=== PATIENT | male | born 1980 | race Caucasian/White ===

== ENCOUNTER 2017-08-18 00:40 | Inpatient (IN) | payer MEDICAID, OTHER ==
--- NOTE | 2017-08-18 01:39 | C.PDOC ---
History Of Present Illness Patient presents to the ER requesting detox from heroin and cocaine, last use was earlier today. Patient is also here for wound check of an abscess to the left antecubital area that has been drained. Denies fever or chills. Time Seen by Provider: 08/18/17 01:24 Chief Complaint (Nursing): Abnormal Skin Integrity History Per: Patient History/Exam Limitations: no limitations Onset/Duration Of Symptoms: Days Current Symptoms Are (Timing): Still Present Suicide/Self Injury Attempted (Context): None Modifying Factor(s): Cocaine, Other (Heroin) Severity: None Pain Scale Rating Of: 0 Associated Symptoms: denies: Depression, Suicidal Thoughts Involuntary Hold By: None Recent travel outside of the [place]: No Past Medical History Reviewed: Historical Data, Nursing Documentation, Vital Signs Vital Signs: Last Vital Signs Temp 98.2 F 08/18/17 05:48 Pulse 68 08/18/17 05:48 Resp 22 08/18/17 05:48 BP 120/60 08/18/17 05:48 Pulse Ox 97 08/18/17 05:48 - Medical History PMH: Anxiety, Depression - [facility] Procedures DETOXIFICATION SERVICES FOR SUBSTANCE ABUSE TREATMENT (06/26/15) GROUP PSYCHOTHERAPY (06/26/15) INDIVIDUAL PSYCHOTHERAPY, SUPPORTIVE (06/26/15) MEDS MGMT FOR SUBSTANCE ABUSE TREATMENT, METHADONE MAINT (06/26/15) Family History: States: No Known Family Hx - Social History Hx Alcohol Use: No Hx Substance Use: Yes - Immunization History Hx Tetanus Toxoid Vaccination: No Hx Influenza Vaccination: No Hx Pneumococcal Vaccination: No Review Of Systems Constitutional: Negative for: Fever, Chills Cardiovascular: Negative for: Chest Pain, Palpitations Respiratory: Negative for: Cough, Shortness of Breath Gastrointestinal: Negative for: Nausea, Vomiting Skin: Positive for: Other (Healed wound) Physical Exam - Physical Exam Appears: Non-toxic Skin: Warm, Dry Head: Normacephalic Oral Mucosa: Moist Chest: Symmetrical, No Tenderness Cardiovascular: Rhythm Regular Respiratory: No Rales, No Rhonchi, No Wheezing Gastrointestinal/Abdominal: Soft, No Tenderness Extremity: Capillary Refill (<2 seconds), Other (Healed wound to left antecubital area. No erythema, fluctuance, or streaking) Pulses: Left Radial: Normal, Right Radial: Normal Neurological/Psych: Oriented x3 ED Course And Treatment - Laboratory Results Result Diagrams: 08/18/17 02:32 08/18/17 02:32 O2 Sat by Pulse Oximetry: 98 (room air) Pulse Ox Interpretation: Normal Progress Note: Blood work and urinalysis ordered. Crisis notified. Disposition Discussed With DrNany: Diana Myers Comment: accepted the pt onher service and took over the care at 5AM Doctor Will See Patient In The: Hospital Counseled Patient/Family Regarding: Studies Performed, Diagnosis - Disposition Disposition: HOSPITALIZED Disposition Time: 01:39 Condition: FAIR - Clinical Impression Clinical Impression: Depressive disorder - Scribe Statement The provider has reviewed the documentation as recorded by the Scribe Waqas Mcallister All medical record entries made by the Scribe were at my direction and personally dictated by me. I have reviewed the chart and agree that the record accurately reflects my personal performance of the history, physical exam, medical decision making, and the department course for this patient. I have also personally directed, reviewed, and agree with the discharge instructions and disposition. Decision To Admit - Pt Status Changed To: Hospital Disposition Of: Inpatient - Admit Certification Admit to Inpatient:: After my assessment, the patient will require hospitalization for at least two midnights. This is because of the severity of symptoms shown, intensity of services needed, and/or the medical risk in this patient being treated as an outpatient. - InPatient: Physician Admission Certification: I certify that this patient requires 2 or more midnights of care for the following reason:: After my assessment, the patient will require hospitalization for at least two midnights. This is because of the severity of symptoms shown, intensity of services needed, and/or the medical risk in this patient being treated as an outpatient. - . Bed Request Type: Psychiatry Admitting Physician: Diana Myers Patient Diagnosis: Depressive disorder
[2017-08-18] MEDS ORDERED: Piperacillin/Tazobact 3.375 GM in Sodium Chloride 100 ML IVPB STA (02:07)
[2017-08-18] MEDS ORDERED: Vancomycin 1 GM 1 GM/250 ML BAG IVPB SCH (02:15)
[2017-08-18] MEDS ORDERED: Vancomycin 1 GM 1 GM/250 ML BAG IVPB STA (02:36)
[2017-08-18 02:37] LABS: BASO % 0.4 % (0.0-2.0); EOS # 0.3 K/uL (0.0-0.7); EOS % 4.8 % (0.0-4.0); HEMOGLOBIN 13.7 g/dL (12.0-18.0); LYMPH # 2.1 K/uL (1.0-4.3); LYMPH % 32.9 % (20.0-40.0); MEAN CELL VOLUME 88.5 fL (80.0-94.0); MEAN PLATELET VOLUME 7.2 fL (7.2-11.7); MONO # 0.5 K/uL (0.0-0.8); MONO % 8.6 % (0.0-10.0); NEUT # 3.4 K/uL (1.8-7.0); NEUT % 53.3 % (50.0-75.0); NRBC % 0.1 % (0.0-2.0); RBC 4.41 Mil/uL (4.40-5.90); RED CELL DISTRIBUTION WIDTH 12.6 % (11.5-14.5); WHITE BLOOD COUNT 6.4 K/uL (4.8-10.8)
[2017-08-18 02:49] LABS: ALBUMIN 3.7 g/dL (3.5-5.0); ALT/SGPT 121 U/L (21-72); AST/SGOT 88 U/L (17-59); BLOOD UREA NITROGEN 18 mg/dL (9-20); CALCIUM 8.9 mg/dl (8.6-10.4); GFR AFRICAN-AMERICAN > 60; GFR NON-AFRICAN AMERICAN > 60
[2017-08-18 03:01] LABS: SQUAMOUS EPITHIAL < 1 /hpf (0-5); URINE BILIRUBIN NEGATIVE (NEGATIVE); URINE BLOOD NEGATIVE (NEGATIVE); URINE CLARITY Clear (Clear); URINE COLOR Amber (YELLOW); URINE GLUCOSE (UA) NORMAL (Normal); URINE LEUKOCYTE ESTERASE NEG Leu/uL (Negative); URINE PROTEIN NEGATIVE (NEGATIVE)
[2017-08-18 03:14] LABS: BARBITURATES, UR NEGATIVE (NEGATIVE); BENZODIAZEPINES, UR NEGATIVE (NEGATIVE); PHENCYCLIDINE, UR NEGATIVE (NEGATIVE)
[2017-08-18 03:20] LABS: OPIATES, UR POSITIVE (NEGATIVE)
[2017-08-18 06:13] VITALS: O2SAT 98
--- NOTE | 2017-08-18 06:37 | PCM.BM ---
<Bob Cadet - Last Filed: 08/18/17 06:36> Treatment Plan Problems - Problems identified on initial assessmt Depression Date Initiated: 08/18/17 Time Initiated: 05:50 Assessment reference: NA Status: Active Suicidal Ideation Date Initiated: 08/18/17 Time Initiated: 05:50 Assessment reference: NA Status: Monitor Treatment assets and liabiliti Patient Assests: ADL independent, good support system, negotiates basic needs Patient Liabilities: substance abuse (Cocaine, Heroin) - Milieu Protocol Maintain good personal hygiene: daily Encourage regular showers, daily Remind patient to perform daily oral care, every shift Assist patient to perform ADL's Conduct patient checks and document Observation sheet: Q15 minutes Maintain personal safety: every shift Educate patient to report safety concerns to staff, every shift Monitor environment for contraband/sharps Medication safety: Monitor for expected outcome, potential side effects: every shift, Assess barriers to learning: every shift, Assess readiness for medication education: every shift <Ignacia Winters - Last Filed: 08/19/17 11:38> Family Contact Family involvement: Family/SO is involved Family contact: Patient declines to allow family contact at present - Goals for Treatment Patient goals for treatment: "I want to go to rehab." Discharge/Continuing Care - Education Needs Education Needs: Patient Medication, Patient Coping Skills, Patient Placement options, Patient Community resources - Discharge Discharge Criteria: Tolerates medication w/o severe side effects, Free of Suicidal thoughts, No longer exhibiting s/s of withdrawal, Reduction of target symptoms Discharge to:: Substance Abuse Rehab - Treatment Team Participation Discussed with Family/SO: No Was Patient/Family/SO present at Treatment Team Meeting: Yes <Johnny Zayas - Last Filed: 08/20/17 19:13> - Diagnosis (1) Depressive disorder Status: Acute Interventions: 08/20/17 19:12 * Assess/adjust medications daily and /or as needed * See patient on an individual basis 7x/week to assess symptoms of depression * Monitor for side effects & effectiveness of medications * (2) Heroin abuse Status: Acute Interventions: 08/20/17 19:13 * Assess 7x/week regarding severity of withdrawal * Educate regarding risks, benefits, side effects and alternatives of medications * Use Motivational Interviewing for abstinence * Use CBT for relapse prevention * Medication management for withdrawal symptoms * Encourage medication assisted treatment *
[2017-08-18 07:06] VITALS: RESP 20
--- NOTE | 2017-08-18 10:14 | PCM.PSYCH ---
Initial Psychiatric Evaluation - Initial Psychiatric Evaluation Type of Admission: Voluntary Legal Status: Capacity Chief Complaint (in patient's own words): I was feeling depressed and suicidal.' History of Present Illness and Precipitating Events: Pt is 37yr old CM, who is currently unemployed with history of depressive disorder, opiate use disorder and cocaine use disorder came to the hospital requesting detox. When he was told that no detox beds were available he said that he is suicidal with a plan to overdose on drugs. Patient has h/o depressive disorder. He was discharged from [facility] almost 2 years ago, from . As per the patient he relapsed on heroin and stopped taking his medications. Pt said that he texted his mother and told her, that he if don't get admitted he is going to kill himself. Pt said that him and his are homeless. His went to another hospital. He said that he is afraid to go back to the street because someone is looking for him and his concerning some money that is owed. He reports injecting 10 bags of heroin daily along with 4 bags of cocaine. Reports withdrawal symptoms including nausea , headaches and sweating, back pains, and joint pain. he reports depressed mood , feelings of helplessness, hopelessness and worthlessness. He reports poor sleep and poor appetite. He denies any auditory or visual hallucinations or any paranoia. PMH None reported Current Medications: Active Medications Generic Name Dose Route Start Last Admin Trade Name Freq PRN Reason Stop Dose Admin Clonidine HCl 0.1 mg 08/18/17 05:05 Catapres PO Q8 PRN COWS Score More or Equal to 5 Hydroxyzine HCl 25 mg 08/18/17 05:06 Atarax PO Q6 PRN Anxiety Ibuprofen 600 mg 08/18/17 05:06 Motrin Tab PO Q6 PRN Pain, moderate (4-7) Loperamide HCl 2 mg 08/18/17 05:05 Imodium PO Q8 PRN Diarrhea Ondansetron HCl 4 mg 08/18/17 05:05 Zofran Tab PO Q8 PRN Nausea/Vomiting Past Psychiatric History - Past Psychiatric History Previous Treatment History: Inpatient Pertinent Medical Hx (Current Medical&Sleep Prob, Allergies): Allergies Allergy/AdvReac Type Severity Reaction Status Date / Time banana Allergy SWELLING Verified 08/18/17 00:56 No Known Home Med 08/18/17 Review of Systems - Review of Systems All systems: reviewed and no additional remarkable complaints except - Psychiatric Psychiatric: Anxiety, Irritability, Suicidal Ideation Mental Status Examination - Personal Presentation Personal Presentation: Looks stated age - Affect Affect: Constricted, Depressed - Motor Activity Motor Activity: Calm - Reliability in Providing Information Reliability in Providing Information: Good - Speech Speech: Organized - Mood Mood: Depressed, Anxious - Formal Thought Process Formal Thought Process: No Impairment - Obsessions/Compulsions Obsessions: No Compulsions: No - Cognitive Functions Orientation: Person, Place, Situation, Time Sensorium: Alert Attention/Concentration: Attentive Abstract Thinking: [place] Estimate of Intelligence: Below average Judgement: Imparied, as evidence by: Poor judgement, Imparied, as evidence by: Lack of insight into illness - Risk Risk: Suicidal, Withdrawal, Diminished functioning - Strength & Assets Inventory Strength & Assets Inventory: Family support DSM 5 DX - DSM 5 DSM 5 Diagnosis: Major depressive disorder recurrent moderate Opioid use disorder severe Opioid withdrawal Cocaine use disorder severe - Recommended/Plan of Treatment Treatment Recommendations and Plan of Treatment: Major depressive disorder recurrent moderate -CBT -Psychoeducation -Supportive therapy, group therapy, individual therapy -Trazodone 100 mg by mouth daily at bedtime -Hydroxyzine 25 mg by mouth every 6 hours when necessary -Gabapentin 100 mg po TID -Celexa 20 mg daily Opioid use disorder severe -CBT -Psychoeducation -Supportive therapy, individual therapy -Use PA for abstinence Opioid withdrawal -CBT -Psychoeducation -Supportive therapy, individual therapy -Clonidine when necessary -Methadone taper Cocaine use disorder severe -Monitor signs and symptoms -Use PA for abstinence - Smoking Cessation Smoking Cessation Initiated: No
--- NOTE | 2017-08-20 19:23 | PCM.PYCHPN ---
Psychiatric Progress Note - Psychiatric Progress Note Patient seen today, length of contact: 16 min Patient Chief Complaint: "I am depressed" Problems Identified/Issues Discussed: The pt is seen, chart reviewed, case discussed with staff. Support given, CBT and NE used briefly No new symptoms reported, improving slowly and needs more time No SEs from medications, risks discussed. After care discussed Medication Change: Yes Medical Record Reviewed: Yes Mental Status Examination - Cognitive Function Orientation: Person, Place, Situation, Time Memory: Intact Attention: WNL Concentration: WNL Association: WNL Fund of Knowledge: WNL - Mood Mood: Depressed, Anxious - Affect Affect: Constricted, Depressed - Speech Speech: Appropriate - Formal Thought Process Formal Thought Process: No Impairment - Suicidal Ideation Suicidal Ideation: No - Homicidal Ideation Homicidal Ideation: No Goal/Treatment Plan - Goal/Treatment Plan Need for Continued Stay: Discharge may exacerbated symptoms, Severe functional impairment Progress Toward Problem(s) and Goals/Treatment Plan: Continue medications Support and psychoeducation daily Attend groups and activities daily After care planning by RK
--- NOTE | 2017-08-20 19:32 | PCM.PYCHPN ---
Psychiatric Progress Note - Psychiatric Progress Note Patient seen today, length of contact: 16 min Patient Chief Complaint: "I am not well" Problems Identified/Issues Discussed: The pt is seen, chart reviewed, case discussed with staff. The pt is compliant with medications and reports no side-effects. Symptoms are improving but needs more time to stabilize. After care discussed, support and psychoeducation given. Medication Change: Yes (detox changes daily) Medical Record Reviewed: Yes Mental Status Examination - Cognitive Function Orientation: Person, Place, Situation, Time Memory: Intact Attention: WNL Concentration: WNL Association: WNL Fund of Knowledge: WNL - Mood Mood: Depressed, Anxious - Affect Affect: Constricted - Speech Speech: Appropriate - Formal Thought Process Formal Thought Process: No Impairment - Suicidal Ideation Suicidal Ideation: No - Homicidal Ideation Homicidal Ideation: No Goal/Treatment Plan - Goal/Treatment Plan Need for Continued Stay: Discharge may exacerbated symptoms, Severe functional impairment Progress Toward Problem(s) and Goals/Treatment Plan: Continue medications Support and psychoeducation daily Attend groups and activities daily After care planning by RK Estimated Date of D/C: 08/22/17
[2017-08-21 06:30] VITALS: TEMP 98.7
--- NOTE | 2017-08-21 09:22 | PCM.PYCHDC ---
Mental Status Examination - Mental Status Examination Orientation: Person Discharge Summary - Discharge Note Consultations:: List each consultation separately and include: 1. Reason for request. 2. Findings. 3. Follow-up Summary of Hospital Course include:: 1. Description of specific treatment plan utilized for patients during their course of treatmen. 2. Summarize the time- course for resolution of acute symptoms and/or regressed behaviors. 3. Describe issues identified and worked on during hospitalization. 4. Describe medication utilized. 5. Describe medical problems identified and treated. 6. Reassessment of suicide risk Summary of Hospital Course: He claims he will go to [facility] [place] tomorrow. He put in a 48-hr note and left a day or two early, but he had improved and competed methadone detox. - Diagnosis (1) Depressive disorder Current Visit: Yes Status: Acute (2) Heroin abuse Current Visit: No Status: Acute - Final Diagnosis (DSM 5) Condition upon Discharge: FAIR Disposition: HOME/ ROUTINE Follow-up Treatment Plan: Continue medications Support and psychoeducation daily Attend groups and activities daily After care planning by RK Prescriptions/Medication Reconciliation: Citalopram [celEXA] 20 mg PO DAILY #30 tab traZODone [Desyrel] 50 mg PO HS PRN #30 tab PRN Reason: Insomnia
[2017-08-21 09:31] VITALS: BP 116/71; PULSE 58
== END 2017-08-21 10:55 | disposition home or self-care (01) | DRG 744 ==
LOC: C.ER 00:40 → C.5E 04:58
PROVIDERS: ADMIT Psychiatry & Neurology Psychiatry; ATTEND Psychiatry & Neurology Psychiatry
PROC: HZ52ZZZ Individual Psychotherapy for Substance Abuse Treatment, Cognitive-Behavioral (ICD-10-PCS; principal; 2017-08-18)
PROC: HZ59ZZZ Individual Psychotherapy for Substance Abuse Treatment, Supportive (ICD-10-PCS; 2017-08-18)
PROC: HZ56ZZZ Individual Psychotherapy for Substance Abuse Treatment, Psychoeducation (ICD-10-PCS; 2017-08-18)
PROC: HZ2ZZZZ Detoxification Services for Substance Abuse Treatment (ICD-10-PCS; 2017-08-18)
PROC: GZHZZZZ Group Psychotherapy (ICD-10-PCS; 2017-08-18)
PROC: GZ58ZZZ Individual Psychotherapy, Cognitive-Behavioral (ICD-10-PCS; 2017-08-18)
PROC: GZ56ZZZ Individual Psychotherapy, Supportive (ICD-10-PCS; 2017-08-18)
DX: F11.23 Opioid dependence with withdrawal (principal); F33.1 Major depressive disorder, recurrent, moderate; F14.20 Cocaine dependence, uncomplicated; F41.9 Anxiety disorder, unspecified

== ENCOUNTER 2017-11-01 13:24 | Inpatient (IN) | payer MEDICAID, OTHER ==
[2017-11-01 14:14] LABS: SQUAMOUS EPITHIAL < 1 /hpf (0-5); URINE BACTERIA RARE (<OCC); URINE BILIRUBIN NEGATIVE (NEGATIVE); URINE BLOOD NEGATIVE (NEGATIVE); URINE CLARITY Hazy (Clear); URINE COLOR Amber (YELLOW); URINE GLUCOSE (UA) NORMAL (Normal); URINE LEUKOCYTE ESTERASE NEG Leu/uL (Negative); URINE PROTEIN NEGATIVE (NEGATIVE)
[2017-11-01 14:33] LABS: BASO % 0.6 % (0.0-2.0); EOS # 0.3 K/uL (0.0-0.7); EOS % 3.3 % (0.0-4.0); HEMOGLOBIN 14.3 g/dL (12.0-18.0); LYMPH # 1.3 K/uL (1.0-4.3); LYMPH % 16.8 % (20.0-40.0); MEAN CELL VOLUME 90.9 fL (80.0-94.0); MEAN CORPUSCULAR HEMOGLOBIN 32.3 pg (27.0-31.0); MEAN CORPUSCULAR HGB CONC 35.6 g/dL (33.0-37.0); MEAN PLATELET VOLUME 6.7 fL (7.2-11.7); MONO # 0.6 K/uL (0.0-0.8); MONO % 8.6 % (0.0-10.0); NEUT # 5.3 K/uL (1.8-7.0); NEUT % 70.7 % (50.0-75.0); NRBC % 0.1 % (0.0-2.0); RBC 4.41 Mil/uL (4.40-5.90); RED CELL DISTRIBUTION WIDTH 14.4 % (11.5-14.5); WHITE BLOOD COUNT 7.5 K/uL (4.8-10.8)
[2017-11-01 14:33] LABS: BARBITURATES, UR NEGATIVE (NEGATIVE); BENZODIAZEPINES, UR NEGATIVE (NEGATIVE); PHENCYCLIDINE, UR NEGATIVE (NEGATIVE)
[2017-11-01 15:09] LABS: ALB/GLOB RATIO 1.1 (1.0-2.1); ALBUMIN 4.2 g/dL (3.5-5.0); ALT/SGPT 83 U/L (21-72); AST/SGOT 59 U/L (17-59); BLOOD UREA NITROGEN 19 mg/dL (9-20); CALCIUM 9.1 mg/dl (8.6-10.4); GFR NON-AFRICAN AMERICAN > 60
[2017-11-01 15:33] LABS: OPIATES, UR POSITIVE (NEGATIVE)
--- NOTE | 2017-11-01 16:11 | C.PDOC ---
History Of Present Illness 37 year old male presents to the emergency department stating that he wishes to harm himself. He admits to using heroin and cocaine. He denies other symptoms at this time. Patient states that his plan was to overdose. Time Seen by Provider: 11/01/17 13:32 Chief Complaint (Nursing): Psychiatric Evaluation History Per: Patient History/Exam Limitations: no limitations Onset/Duration Of Symptoms: Hrs Current Symptoms Are (Timing): Still Present Suicide/Self Injury Attempted (Context): None Modifying Factor(s): Cocaine, Other (heroin) Associated Symptoms: Depression, Suicidal Thoughts, Suicidal Plan Past Medical History Reviewed: Historical Data, Nursing Documentation, Vital Signs Vital Signs: Last Vital Signs Temp 98.0 F 11/01/17 13:55 Pulse 71 11/01/17 13:55 Resp 20 11/01/17 13:55 BP 154/88 H 11/01/17 13:55 Pulse Ox 96 11/01/17 16:15 - Medical History PMH: Anxiety, Depression, Hepatitis (Hep "C") Denies: Diabetes, Emphysema, HIV (HIV negative), HTN, Chronic Kidney Disease , Seizures, Sexually Transmitted Disease Surgical History: No Surg Hx - [facility] Procedures DETOXIFICATION SERVICES FOR SUBSTANCE ABUSE TREATMENT (08/18/17) GROUP PSYCHOTHERAPY (08/18/17) INDIV PSYCHOTHERAPY FOR SUBSTANCE ABUSE TREATMENT, SUPPORT (08/18/17) INDIV PSYCHOTHERAPY FOR SUBSTANCE ABUSE, COGNITIV BEHAVIORAL (08/18/17) INDIV PSYCHOTHERAPY FOR SUBSTANCE ABUSE, PSYCHOEDUCATION (08/18/17) INDIVIDUAL PSYCHOTHERAPY, COGNITIVE-BEHAVIORAL (08/18/17) INDIVIDUAL PSYCHOTHERAPY, SUPPORTIVE (08/18/17) MEDS MGMT FOR SUBSTANCE ABUSE TREATMENT, METHADONE MAINT (06/26/15) Family History: States: No Known Family Hx - Social History Hx Alcohol Use: No Hx Substance Use: Yes - Immunization History Hx Tetanus Toxoid Vaccination: No Hx Influenza Vaccination: No Hx Pneumococcal Vaccination: No Review Of Systems Except As Marked, All Systems Reviewed And Found Negative. Psych: Positive for: Depression, Suicidal ideation, Other (suicidal plan) Physical Exam - Physical Exam Appears: Non-toxic, No Acute Distress Skin: Warm, Dry Head: Atraumatic, Normacephalic Eye(s): bilateral: Normal Inspection Neck: Normal, Supple Cardiovascular: Rhythm Regular, No Murmur Respiratory: Normal Breath Sounds, No Rales, No Rhonchi, No Wheezing Gastrointestinal/Abdominal: Normal Exam, Soft, No Tenderness, No Guarding, No Rebound Extremity: Normal ROM Neurological/Psych: Oriented x3, Normal Speech, Normal Cognition ED Course And Treatment - Laboratory Results Result Diagrams: 11/01/17 14:30 11/01/17 14:30 O2 Sat by Pulse Oximetry: 96 (RA) Pulse Ox Interpretation: Normal Medical Decision Making Medical Decision Making: Assessment: Suicidal ideation and plan Plan: Alcohol Serum CMP Drug Screen Urinalysis CBC Disposition Discussed With Dr.: Kenan Soler Doctor Will See Patient In The: Hospital Counseled Patient/Family Regarding: Studies Performed, Diagnosis - Disposition Disposition: HOSPITALIZED Disposition Time: 16:49 Condition: FAIR Forms: [facility] (Ecuadorean) - Clinical Impression Clinical Impression: Depression, Substance abuse - Scribe Statement The provider has reviewed the documentation as recorded by the Scribe (Saleem Fitzgerald) Provider Attestation: All medical record entries made by the Scribe were at my direction and personally dictated by me. I have reviewed the chart and agree that the record accurately reflects my personal performance of the history, physical exam, medical decision making, and the department course for this patient. I have also personally directed, reviewed, and agree with the discharge instructions and disposition.
--- NOTE | 2017-11-01 19:09 | PCM.BM ---
<Palma Shukla - Last Filed: 11/01/17 19:06> Treatment Plan Problems - Problems identified on initial assessmt Substance Abuse Date Initiated: 11/01/17 Time Initiated: 19:07 Assessment reference: NA Status: Active Depression Date Initiated: 11/01/17 Time Initiated: 19:07 Assessment reference: NA Status: Active Treatment assets and liabiliti Patient Assests: ADL independent, good support system, negotiates basic needs Patient Liabilities: live alone, relationship conflicts, substance abuse (Heroin , cocaine), medical problems (Hep C), legal issue (History of arrest) - Milieu Protocol Maintain good personal hygiene: daily Encourage regular showers, daily Remind patient to perform daily oral care, every shift Assist patient to perform ADL's Conduct patient checks and document Observation sheet: Q15 minutes (For Safety) Maintain personal safety: every shift Educate patient to report safety concerns to staff, every shift Monitor environment for contraband/sharps Medication safety: Monitor for expected outcome, potential side effects: every shift, Assess barriers to learning: every shift, Assess readiness for medication education: every shift <Hanna No - Last Filed: 11/02/17 12:51> Family Contact - Goals for Treatment Patient goals for treatment: "I want to go to [facility] rehab." Discharge/Continuing Care - Education Needs Education Needs: Patient Medication, Patient Diagnosis/Disease Process, Patient Coping Skills, Patient Placement options, Patient Community resources - Discharge Discharge Criteria: Free of Suicidal thoughts, Normal sleep pattern, Ability to care for self, No longer exhibiting s/s of withdrawal, Reduction of target symptoms - Treatment Team Participation Discussed with Family/SO: No Was Patient/Family/SO present at Treatment Team Meeting: Yes
[2017-11-01] MEDS ORDERED: Aluminum Hydroxide/Magnesium Hydroxide Susp (30 mL) PO PRN (23:03)
--- NOTE | 2017-11-02 10:52 | PCM.PSYCH ---
Initial Psychiatric Evaluation - Initial Psychiatric Evaluation Type of Admission: Voluntary Legal Status: Capacity Chief Complaint (in patient's own words): I was feeling depressed and suicidal.' History of Present Illness and Precipitating Events: He is a 37 y/o male currently homeless and unemployed, was brought into the ER yesterday due to wanting to commit suicide. Pt has a hx of anxiety, depression, diagnosed 2013 by psychiatrist and has been abusing heroin and cocaine user for 10 years. pt has been shoplifting and stealing drugs since being homeless pt injected 10 bags of heroin at once yesterday because " I am at the end of my rope". pt has hx of multiple detox attempts, most recent was last week at [facility] for 2 days, but relapsed because it was "not long enough". pt wants to start a detox program after leaving the hospital. Pt mentions heroin use made him depressed, has sxs of guilt, sad mood, and poor sleep. He also reports feelings of hopelessness and helplessness, and unable to concentrate. He denies hallucinations, or any suicidal ideation or any homicidal ideation. He reports of withdrawal symptoms of heroin abuse including nausea, cramps, headaches, anxiety and body aches. Medical Hx - Hepatitis C, Depression, Anxiety Surgical Hx - denies Fam Hx - denies Legal hx - has been charged with possestion of heroin and shop lifting "couples of months ago". Current Medications: Active Medications Generic Name Dose Route Start Last Admin Trade Name Freq PRN Reason Stop Dose Admin Al Hydrox/Mg Hydrox/Simethicone 30 ml 11/01/17 23:03 Maalox 30 Ml PO TID PRN Indigestion / Heartburn Clonidine HCl 0.1 mg 11/01/17 23:03 Catapres PO Q8 PRN COWS Score More or Equal to 5 Hydroxyzine HCl 50 mg 11/01/17 23:01 Atarax PO Q6H PRN Anxiety Ibuprofen 600 mg 11/01/17 23:01 Motrin Tab PO Q6H PRN Pain, moderate (4-7) Loperamide HCl 2 mg 11/01/17 23:03 Imodium PO Q8 PRN Diarrhea Methadone HCl 30 mg 11/02/17 10:49 Methadone PO 11/02/17 10:50 STAT STA Methadone HCl 0 mg 11/03/17 10:00 Methadone PO 11/08/17 09:59 DAILY KRISTINE Taper Mirtazapine 15 mg 11/01/17 23:15 11/02/17 00:05 Remeron PO Not Given HS KRISTINE Ondansetron HCl 4 mg 11/01/17 23:03 Zofran Tab PO Q8 PRN Nausea/Vomiting Pneumococcal Polyvalent Vaccine 0.5 ml 11/03/17 09:00 Pneumovax 23 Vaccine IM 11/03/17 09:01 .ONCE ONE Trazodone HCl 100 mg 11/01/17 23:01 Desyrel PO HS PRN Insomnia Past Psychiatric History - Past Psychiatric History Previous Treatment History: Inpatient Pertinent Medical Hx (Current Medical&Sleep Prob, Allergies): Allergies Allergy/AdvReac Type Severity Reaction Status Date / Time banana Allergy SWELLING Verified 11/01/17 13:30 No Known Home Med 11/01/17 Review of Systems - Review of Systems All systems: reviewed and no additional remarkable complaints except - Psychiatric Psychiatric: Anhedonia, Depression, Difficulty Concentrating, Hopelessness, Suicidal Ideation. absent: Auditory Hallucinations, Hallucinations, Homicidal Ideation, Visual Hallucinations, Tactile Hallucinations Mental Status Examination - Personal Presentation Personal Presentation: Looks stated age - Affect Affect: Constricted, Depressed - Motor Activity Motor Activity: Calm - Reliability in Providing Information Reliability in Providing Information: Good - Speech Speech: Organized, Relevant - Mood Mood: Neutral - Formal Thought Process Formal Thought Process: No Impairment - Obsessions/Compulsions Obsessions: No Compulsions: No - Cognitive Functions Orientation: Person, Place, Situation, Time Sensorium: Alert Attention/Concentration: Attentive Abstract Thinking: [place] Estimate of Intelligence: Below average Judgement: Imparied, as evidence by: Poor judgement, Imparied, as evidence by: Lack of insight into illness - Risk Risk: Suicidal, Withdrawal, Diminished functioning - Limitations Limitations: Living alone DSM 5 DX - DSM 5 DSM 5 Diagnosis: Major depressive disorder recurrent severe without psychotic features Opiate use disorder severe Opioid withdrawal Cocaine use disorder severe Cannabis use disorder moderate - Recommended/Plan of Treatment Treatment Recommendations and Plan of Treatment: Major depressive disorder recurrent severe without psychotic features Opiate use disorder severe Opioid withdrawal Cocaine use disorder severe Cannabis use disorder moderate CBT Psychoeducation Supportive therapy, group therapy Methadone taper Paxil 10 mg by mouth daily Neurontin 300 mg PO TID Gabapentin for augmentation Trazodone for insomnia Hydroxyzine for anxiety Use FL for abstinence - Smoking Cessation Smoking Cessation Initiated: No
[2017-11-03] MEDS ORDERED: Pneumococcal 23-Valent Vaccine IM ONE (09:00)
--- NOTE | 2017-11-03 11:12 | PCM.PYCHPN ---
Psychiatric Progress Note - Psychiatric Progress Note Patient seen today, length of contact: 15 min Patient Chief Complaint: I was feeling depressed and suicidal.' Problems Identified/Issues Discussed: Patient seen and evaluated, chart reviewed and discussed with the nurse. Today he reports depressed mood, and still reports feelings of hopelessness and helplessness. He remained isolated and withdrawn, and confined to his room. He still reports withdrawal symptoms including abdominal cramps, anxiety, headaches and sweating. Patient is compliant with medications and denies any side effects. Symptoms are improving but pt needs more time to stabilize. Support and psychoeducation given. Medication Change: Yes Medical Record Reviewed: Yes Mental Status Examination - Cognitive Function Orientation: Person, Place, Situation, Time Memory: Intact Attention: WNL Concentration: Poor Association: WNL Fund of Knowledge: Poor - Mood Mood: Neutral - Affect Affect: Constricted, Depressed - Speech Speech: Soft - Formal Thought Process Formal Thought Process: No Impairment - Suicidal Ideation Suicidal Ideation: No - Homicidal Ideation Homicidal Ideation: No Goal/Treatment Plan - Goal/Treatment Plan Need for Continued Stay: Severe depression anxiety, Severe functional impairment Progress Toward Problem(s) and Goals/Treatment Plan: Major depressive disorder recurrent severe without psychotic features Opiate use disorder severe Opioid withdrawal Cocaine use disorder severe Cannabis use disorder moderate CBT Psychoeducation Supportive therapy, group therapy Methadone taper DC Paxil 10 mg by mouth daily Start Remeron 15 mg PO QHS Gabapentin for augmentation Trazodone for insomnia Hydroxyzine for anxiety Use ME for abstinence
--- NOTE | 2017-11-05 01:16 | PCM.PYCHPN ---
Psychiatric Progress Note - Psychiatric Progress Note Patient seen today, length of contact: 15 min Patient Chief Complaint: I m feeling less depressed.' Problems Identified/Issues Discussed: Patient seen and evaluated, chart reviewed and discussed with the nurse. Pt reports some improvement in his depressed mood, and reports some improvement in the feelings of hopelessness and helplessness. He remained isolated and withdrawn, and confined to his room. He still reports withdrawal symptoms including abdominal cramps, anxiety, headaches and sweating. Patient is compliant with medications and denies any side effects. Symptoms are improving but pt needs more time to stabilize. Support and psychoeducation given. Medication Change: Yes Medical Record Reviewed: Yes Mental Status Examination - Cognitive Function Orientation: Person, Place, Situation, Time Memory: Intact Attention: WNL Concentration: Poor Association: WNL Fund of Knowledge: Poor - Mood Mood: Neutral - Affect Affect: Constricted, Depressed - Speech Speech: Soft - Formal Thought Process Formal Thought Process: No Impairment - Suicidal Ideation Suicidal Ideation: No - Homicidal Ideation Homicidal Ideation: No Goal/Treatment Plan - Goal/Treatment Plan Need for Continued Stay: Severe depression anxiety, Severe functional impairment Progress Toward Problem(s) and Goals/Treatment Plan: Major depressive disorder recurrent severe without psychotic features Opiate use disorder severe Opioid withdrawal Cocaine use disorder severe Cannabis use disorder moderate CBT Psychoeducation Supportive therapy, group therapy Methadone taper Remeron 30 mg PO QHS Gabapentin for augmentation Trazodone for insomnia Hydroxyzine for anxiety Use AL for abstinence
--- NOTE | 2017-11-05 16:21 | PCM.PYCHPN ---
Psychiatric Progress Note - Psychiatric Progress Note Patient seen today, length of contact: 15 min Patient Chief Complaint: I'm feeling much better. Problems Identified/Issues Discussed: Patient seen, chart reviewed, case discussed with the staff. Issues related to illness and treatment were discussed with the patient and staff. Reported compliant with treatment with no adverse affects. Tolerating treatment very well. Patient reported feeling better. Needs more time for stabilization. Patient was calm and cooperative. Patient was awake alert oriented 3 with good eye contact. Mood reported as good, affect appropriate. Aftercare discussed with the patient. At the time of evaluation, patient was awake alert oriented 3, had no delusions , no auditory or visual hallucinations. Medical Problems: Hepatitis C Diagnostic Results: Reviewed DSM 5 Symptoms Update: Some improvement with treatment Medication Change: No Medical Record Reviewed: Yes Mental Status Examination - Cognitive Function Orientation: Person, Place, Situation, Time Memory: Intact Attention: WNL Concentration: WNL Association: WN Fund of Knowledge: [facility] Decription of patient's judgement and insights: Fair - Mood Mood: Anxious - Affect Affect: Other (Appropriate) - Speech Speech: Soft - Formal Thought Process Formal Thought Process: No Impairment Psychotic Thoughts and Behaviors: None - Suicidal Ideation Suicidal Ideation: No - Homicidal Ideation Homicidal Ideation: No Goal/Treatment Plan - Goal/Treatment Plan Need for Continued Stay: Remain at risks for inpatient hospitalization, Discharge may exacerbated symptoms, Severe functional impairment Progress Toward Problem(s) and Goals/Treatment Plan: Patient education. Supportive therapy. CBT for relapse prevention. ID for abstinence. Continue treatment as before. Estimated Date of D/C: 11/08/17 - Smoking Cessation Smoking Cessation Initiated: No
--- NOTE | 2017-11-07 00:04 | PCM.PYCHPN ---
Psychiatric Progress Note - Psychiatric Progress Note Patient seen today, length of contact: 15 min Patient Chief Complaint: "Better" Problems Identified/Issues Discussed: The pt is seen, chart reviewed, case discussed with staff. The pt is compliant with medications and reports no side-effects. Symptoms are improving but needs more time to stabilize. After care discussed, support and psychoeducation given. Medication Change: No Medical Record Reviewed: Yes Mental Status Examination - Cognitive Function Orientation: Person, Place, Situation, Time Memory: Intact Attention: WNL Concentration: Poor Association: WNL Fund of Knowledge: WNL - Mood Mood: Anxious - Affect Affect: Constricted - Speech Speech: Soft - Formal Thought Process Formal Thought Process: No Impairment - Suicidal Ideation Suicidal Ideation: No - Homicidal Ideation Homicidal Ideation: No Goal/Treatment Plan - Goal/Treatment Plan Need for Continued Stay: Discharge may exacerbated symptoms, Severe functional impairment Progress Toward Problem(s) and Goals/Treatment Plan: Continue medications Support and psychoeducation daily Attend groups and activities daily After care planning by RK Estimated Date of D/C: 11/08/17
[2017-11-07 06:36] VITALS: TEMP 97.5
[2017-11-08 06:53] VITALS: BP 115/72; PULSE 52; RESP 18; O2SAT 100
--- NOTE | 2017-11-08 09:48 | PCM.PYCHDC ---
Mental Status Examination - Mental Status Examination Orientation: Person Discharge Summary - Discharge Note Consultations:: List each consultation separately and include: 1. Reason for request. 2. Findings. 3. Follow-up Summary of Hospital Course include:: 1. Description of specific treatment plan utilized for patients during their course of treatmen. 2. Summarize the time- course for resolution of acute symptoms and/or regressed behaviors. 3. Describe issues identified and worked on during hospitalization. 4. Describe medication utilized. 5. Describe medical problems identified and treated. 6. Reassessment of suicide risk Summary of Hospital Course: He will go to [facility]. - Final Diagnosis (DSM 5) Condition upon Discharge: IMPROVED Disposition: HOME/ ROUTINE Follow-up Treatment Plan: Continue medications Support and psychoeducation daily Attend groups and activities daily After care planning by RK Prescriptions/Medication Reconciliation: Gabapentin [Neurontin] 300 mg PO TID #90 cap Mirtazapine [Remeron] 30 mg PO HS #30 tab traZODone [Desyrel] 100 mg PO HS PRN #30 tab PRN Reason: Insomnia
== END 2017-11-08 10:15 | disposition home or self-care (01) | DRG 744 ==
LOC: C.ER 13:24 → C.5E 16:48
PROVIDERS: ADMIT Psychiatry & Neurology Psychiatry; ATTEND Psychiatry & Neurology Psychiatry
PROC: HZ52ZZZ Individual Psychotherapy for Substance Abuse Treatment, Cognitive-Behavioral (ICD-10-PCS; principal; 2017-11-01)
PROC: HZ2ZZZZ Detoxification Services for Substance Abuse Treatment (ICD-10-PCS; 2017-11-01)
PROC: HZ59ZZZ Individual Psychotherapy for Substance Abuse Treatment, Supportive (ICD-10-PCS; 2017-11-01)
PROC: HZ56ZZZ Individual Psychotherapy for Substance Abuse Treatment, Psychoeducation (ICD-10-PCS; 2017-11-01)
PROC: HZ42ZZZ Group Counseling for Substance Abuse Treatment, Cognitive-Behavioral (ICD-10-PCS; 2017-11-01)
PROC: HZ46ZZZ Group Counseling for Substance Abuse Treatment, Psychoeducation (ICD-10-PCS; 2017-11-01)
PROC: GZHZZZZ Group Psychotherapy (ICD-10-PCS; 2017-11-01)
PROC: GZ58ZZZ Individual Psychotherapy, Cognitive-Behavioral (ICD-10-PCS; 2017-11-01)
PROC: GZ56ZZZ Individual Psychotherapy, Supportive (ICD-10-PCS; 2017-11-01)
DX: F11.23 Opioid dependence with withdrawal (principal); B19.20 Unspecified viral hepatitis C without hepatic coma; F33.2 Major depressive disorder, recurrent severe without psychotic features; R45.851 Suicidal ideations; F14.20 Cocaine dependence, uncomplicated; F12.20 Cannabis dependence, uncomplicated; F41.9 Anxiety disorder, unspecified; G47.00 Insomnia, unspecified; Z59.0 Homelessness

== ENCOUNTER 2017-11-19 00:35 | Emergency (ER) | payer MEDICAID, OTHER ==
[2017-11-19 01:02] VITALS: BP 136/69; PULSE 67; RESP 16; TEMP 98.2; O2SAT 96
--- NOTE | 2017-11-19 01:25 | C.PDOC ---
History Of Present Illness 37 year old male presents to the ER requesting detox, however, he now states he changes his mind and will return another time. Time Seen by Provider: 11/19/17 01:06 Chief Complaint (Nursing): Substance Abuse History Per: Patient History/Exam Limitations: no limitations Onset/Duration Of Symptoms: Hrs Current Symptoms Are (Timing): Still Present Suicide/Self Injury Attempted (Context): None Associated Symptoms: denies: Depression, Suicidal Thoughts Involuntary Hold By: None Recent travel outside of the [place]: No Past Medical History Reviewed: Historical Data, Nursing Documentation, Vital Signs Vital Signs: Last Vital Signs Temp 98.2 F 11/19/17 00:56 Pulse 67 11/19/17 00:56 Resp 16 11/19/17 00:56 BP 136/69 11/19/17 00:56 Pulse Ox 96 11/19/17 01:25 - Medical History PMH: Anxiety, Depression, Hepatitis (Hep "C") Denies: Atrial Fibrillation, Cardia Arrhythmia, CHF, Diabetes, Emphysema, HIV (HIV negative), HTN, Hypercholesterolemia, Chronic Kidney Disease, Seizures , Sexually Transmitted Disease - [facility] Procedures DETOXIFICATION SERVICES FOR SUBSTANCE ABUSE TREATMENT (11/01/17) GROUP CHRISTMAS TREE CONTRACTOR FOR SUBSTANCE ABUSE TREATMENT, PSYCHOEDUCATION (11/01/17) GROUP CHRISTMAS TREE CONTRACTOR FOR SUBSTANCE ABUSE, COGNITIVE BEHAVIORAL (11/01/17) GROUP PSYCHOTHERAPY (11/01/17) INDIV PSYCHOTHERAPY FOR SUBSTANCE ABUSE TREATMENT, SUPPORT (11/01/17) INDIV PSYCHOTHERAPY FOR SUBSTANCE ABUSE, COGNITIV BEHAVIORAL (11/01/17) INDIV PSYCHOTHERAPY FOR SUBSTANCE ABUSE, PSYCHOEDUCATION (11/01/17) INDIVIDUAL PSYCHOTHERAPY, COGNITIVE-BEHAVIORAL (11/01/17) INDIVIDUAL PSYCHOTHERAPY, SUPPORTIVE (11/01/17) MEDS MGMT FOR SUBSTANCE ABUSE TREATMENT, METHADONE MAINT (06/26/15) Family History: States: Unknown Family Hx - Social History Hx Alcohol Use: No Hx Substance Use: Yes - Immunization History Hx Tetanus Toxoid Vaccination: No Hx Influenza Vaccination: No Hx Pneumococcal Vaccination: No Review Of Systems Constitutional: Negative for: Fever, Chills Cardiovascular: Negative for: Chest Pain, Palpitations Respiratory: Negative for: Cough, Shortness of Breath Gastrointestinal: Negative for: Nausea, Vomiting, Abdominal Pain Physical Exam - Physical Exam Appears: Non-toxic Skin: Normal Color, Warm, Dry Head: Atraumatic, Normacephalic Eye(s): bilateral: Normal Inspection Chest: Symmetrical, No Tenderness Cardiovascular: Rhythm Regular Respiratory: Normal Breath Sounds, No Accessory Muscle Use Neurological/Psych: Oriented x3, Normal Speech Gait: Steady ED Course And Treatment O2 Sat by Pulse Oximetry: 96 (Room air) Pulse Ox Interpretation: Normal Progress Note: Patient states he will come another day for detox. Disposition Counseled Patient/Family Regarding: Diagnosis, Need For Followup - Disposition Disposition: HOME/ ROUTINE Disposition Time: 01:24 Condition: STABLE Additional Instructions: Please follow up outpatient return if any concerns Instructions: Polysubstance Abuse (DC) Forms: [employer] (Sami) - Clinical Impression Clinical Impression: Drug abuse - PA / PREFORM PLATE MAKER / Resident Statement MD/DO has reviewed & agrees with the documentation as recorded. - Scribe Statement The provider has reviewed the documentation as recorded by the Scribe Waqas Mcallister All medical record entries made by the Scribe were at my direction and personally dictated by me. I have reviewed the chart and agree that the record accurately reflects my personal performance of the history, physical exam, medical decision making, and the department course for this patient. I have also personally directed, reviewed, and agree with the discharge instructions and disposition.
== END 2017-11-19 01:32 | disposition home or self-care (01) ==
LOC: C.ER 00:35
DX: F19.10 Other psychoactive substance abuse, uncomplicated (principal)

== ENCOUNTER 2017-11-26 13:53 | Inpatient (IN) | payer MEDICAID, OTHER ==
[2017-11-26] MEDS ORDERED: Tmp-Smz 800 mg-160 mg DS Tab PO STA (14:52)
[2017-11-26 15:00] LABS: BASO % 0.2 % (0.0-2.0); EOS % 0.2 % (0.0-4.0); HEMOGLOBIN 13.2 g/dL (12.0-18.0); LYMPH % 7.2 % (20.0-40.0); MEAN CELL VOLUME 91.6 fL (80.0-94.0); MEAN CORPUSCULAR HEMOGLOBIN 31.3 pg (27.0-31.0); MEAN CORPUSCULAR HGB CONC 34.2 g/dL (33.0-37.0); MEAN PLATELET VOLUME 7.1 fL (7.2-11.7); MONO % 6.9 % (0.0-10.0); NEUT # 12.3 K/uL (1.8-7.0); NEUT % 85.5 % (50.0-75.0); NRBC % 0.1 % (0.0-2.0); PLATELET COUNT 208 K/uL (130-400); RBC 4.23 Mil/uL (4.40-5.90); RED CELL DISTRIBUTION WIDTH 13.6 % (11.5-14.5)
[2017-11-26 15:01] LABS: WHITE BLOOD COUNT 14.4 K/uL (4.8-10.8)
[2017-11-26] MEDS ORDERED: Tmp-Smz 800 mg-160 mg DS Tab ONE (15:04)
[2017-11-26 15:12] LABS: ALBUMIN 3.8 g/dL (3.5-5.0); ALT/SGPT 49 U/L (21-72); AST/SGOT 29 U/L (17-59); BLOOD UREA NITROGEN 9 mg/dL (9-20); CALCIUM 8.9 mg/dl (8.6-10.4); GFR NON-AFRICAN AMERICAN > 60
--- NOTE | 2017-11-26 15:20 | C.PDOC ---
History Of Present Illness 37 year old male presents to ED for psychiatric evaluation. Patient states he wants to kill himself and is feeling depressed. Patient reports having thoughts of hurting himself by overdosing on heroin. Patient also complains of painful abscess to right upper back that has been present for the past 4-5 days. Denies injecting into area, fever, chills, cough, runny nose, sore throat, chest pain, shortness of breath, abdominal pain. Time Seen by Provider: 11/26/17 14:01 Chief Complaint (Nursing): Psychiatric Evaluation History Per: Patient History/Exam Limitations: no limitations Onset/Duration Of Symptoms: Days Current Symptoms Are (Timing): Still Present Past Medical History Reviewed: Historical Data, Nursing Documentation, Vital Signs Vital Signs: Last Vital Signs Temp 97.8 F 11/26/17 14:01 Pulse 71 11/26/17 14:01 Resp 20 11/26/17 14:01 BP 143/81 11/26/17 14:01 Pulse Ox 97 11/26/17 15:29 - Medical History PMH: Anxiety, Depression, Hepatitis (Hep "C") Denies: Atrial Fibrillation, Cardia Arrhythmia, CHF, Diabetes, Emphysema, HIV (HIV negative), HTN, Hypercholesterolemia, Chronic Kidney Disease, Seizures , Sexually Transmitted Disease Surgical History: No Surg Hx - [facility] Procedures DETOXIFICATION SERVICES FOR SUBSTANCE ABUSE TREATMENT (11/01/17) GROUP OTR TANKER TRUCK DRIVER FOR SUBSTANCE ABUSE TREATMENT, PSYCHOEDUCATION (11/01/17) GROUP OTR TANKER TRUCK DRIVER FOR SUBSTANCE ABUSE, COGNITIVE BEHAVIORAL (11/01/17) GROUP PSYCHOTHERAPY (11/01/17) INDIV PSYCHOTHERAPY FOR SUBSTANCE ABUSE TREATMENT, SUPPORT (11/01/17) INDIV PSYCHOTHERAPY FOR SUBSTANCE ABUSE, COGNITIV BEHAVIORAL (11/01/17) INDIV PSYCHOTHERAPY FOR SUBSTANCE ABUSE, PSYCHOEDUCATION (11/01/17) INDIVIDUAL PSYCHOTHERAPY, COGNITIVE-BEHAVIORAL (11/01/17) INDIVIDUAL PSYCHOTHERAPY, SUPPORTIVE (11/01/17) MEDS MGMT FOR SUBSTANCE ABUSE TREATMENT, METHADONE MAINT (06/26/15) Family History: States: No Known Family Hx - Social History Hx Alcohol Use: No Hx Substance Use: Yes - Immunization History Hx Tetanus Toxoid Vaccination: No Hx Influenza Vaccination: No Hx Pneumococcal Vaccination: No Review Of Systems Constitutional: Negative for: Fever, Chills ENT: Negative for: Nose Discharge, Throat Pain Cardiovascular: Negative for: Chest Pain Respiratory: Negative for: Cough, Shortness of Breath Gastrointestinal: Negative for: Abdominal Pain Psych: Positive for: Suicidal ideation Physical Exam - Physical Exam Appears: Non-toxic, No Acute Distress, Other (Flat affect) Skin: Warm, Dry Head: Atraumatic, Normacephalic Eye(s): bilateral: PERRL, EOMI Oral Mucosa: Moist Neck: Supple Chest: Symmetrical, No Deformity Cardiovascular: Rhythm Regular Respiratory: Normal Breath Sounds, No Rales, No Rhonchi, No Wheezing Gastrointestinal/Abdominal: Soft, No Tenderness, No Distention Back: Other (6 cm area of induration and erythema to the right upper back on the T-3/T-4 area. Pustule on lateral aspect. No fluctuance, tender to palpation. ) Neurological/Psych: Oriented x3 Gait: Steady ED Course And Treatment - Laboratory Results Result Diagrams: 11/26/17 14:55 11/26/17 14:55 O2 Sat by Pulse Oximetry: 97 (RA) Pulse Ox Interpretation: Normal Progress Note: Blood work, UA, UDS ordered and reviewed. Patient given PO antibiotics (Bactrim, Keflex) for abscess on upper back. Abscess indurated, not able to be I&D yet. Leukocytosis due to abscess. Recommend PO Bactrim DS BID x 7 days, PO Keflex 500mg PO BID x 7 days, warm compresses 3x daily. 4:00pm - Patient medically cleared. Disposition - Disposition Forms: [employer] (Welsh) - Scribe Statement The provider has reviewed the documentation as recorded by the Dea Luued Provider Attestation: All medical record entries made by the Dea were at my direction and personally dictated by me. I have reviewed the chart and agree that the record accurately reflects my personal performance of the history, physical exam, medical decision making, and the department course for this patient. I have also personally directed, reviewed, and agree with the discharge instructions and disposition.
[2017-11-26 15:40] LABS: ANISOCYTOSIS SLIGHT; BANDS 2 % (0-2); LYMPHOCYTE 6 % (20-40); MONOCYTE 5 % (0-10); NEUTROPHIL 87 % (50-75); PLATELET ESTIMATE NORMAL (NORMAL); TOTAL CELLS COUNTED 100
[2017-11-26 15:40] LABS: SQUAMOUS EPITHIAL < 1 /hpf (0-5); URINE BACTERIA RARE (<OCC); URINE BILIRUBIN NEGATIVE (NEGATIVE); URINE BLOOD NEGATIVE (NEGATIVE); URINE CLARITY Clear (Clear); URINE COLOR Amber (YELLOW); URINE GLUCOSE (UA) NORMAL (Normal); URINE LEUKOCYTE ESTERASE NEG Leu/uL (Negative); URINE PROTEIN 2+ mg/dL (NEGATIVE)
[2017-11-26 15:52] LABS: BARBITURATES, UR NEGATIVE (NEGATIVE); BENZODIAZEPINES, UR NEGATIVE (NEGATIVE); PHENCYCLIDINE, UR NEGATIVE (NEGATIVE)
[2017-11-26 15:54] LABS: OPIATES, UR POSITIVE (NEGATIVE)
--- NOTE | 2017-11-26 17:03 | PCM.BM ---
<Ann Brown - Last Filed: 11/26/17 17:01> Treatment Plan Problems - Problems identified on initial assessmt Suicidal ideation Date Initiated: 11/26/17 Time Initiated: 17:00 Assessment reference: NA Status: Active Treatment assets and liabiliti Patient Assests: ADL independent, good support system, negotiates basic needs Patient Liabilities: substance abuse - Milieu Protocol Maintain good personal hygiene: daily Encourage regular showers, daily Remind patient to perform daily oral care, daily Assist patient to perform ADL's Maintain personal safety: every shift Educate patient to report safety concerns to staff, every shift Monitor environment for contraband/sharps Medication safety: Monitor for expected outcome, potential side effects: every shift, Assess barriers to learning: every shift, Assess readiness for medication education: every shift <RyderMaricarmenjenny - Last Filed: 11/28/17 10:47> - Diagnosis (1) Depressive disorder Status: Acute Interventions: 11/28/17 10:48 * Assess/adjust medications daily and /or as needed * See patient on an individual basis 7x/week to assess symptoms of depression * Monitor for side effects & effectiveness of medications * (2) Heroin abuse Status: Acute Interventions: 11/28/17 10:48 * Assess 7x/week regarding severity of withdrawal * Educate regarding risks, benefits, side effects and alternatives of medications * Use Motivational Interviewing for abstinence * Use CBT for relapse prevention * Medication management for withdrawal symptoms * Encourage medication assisted treatment * <Ignacia Winters - Last Filed: 11/28/17 11:34> Family Contact Family involvement: Famliy/SO not involved - Goals for Treatment Patient goals for treatment: "I want to go to rehab." Discharge/Continuing Care - Education Needs Education Needs: Patient Medication, Patient Coping Skills, Patient Placement options, Patient Community resources - Discharge Discharge Criteria: Tolerates medication w/o severe side effects, No longer exhibiting s/s of withdrawal, Reduction of target symptoms Discharge to:: Substance Abuse Rehab - Treatment Team Participation Discussed with Family/SO: No Was Patient/Family/SO present at Treatment Team Meeting: Yes
[2017-11-27] MEDS ORDERED: Aluminum Hydroxide/Magnesium Hydroxide Susp (30 mL) PO PRN (06:32)
[2017-11-27] MEDS ORDERED: Tmp-Smz 800 mg-160 mg DS Tab PO SCH (10:00)
--- NOTE | 2017-11-27 11:26 | PCM.PSYCH ---
Initial Psychiatric Evaluation - Initial Psychiatric Evaluation Type of Admission: Voluntary Legal Status: Capacity Chief Complaint (in patient's own words): "I was very depressed" History of Present Illness and Precipitating Events: He is seen, chart reviewed and case discussed. He is known form a recent psych admission here. He is a 37 y/o male, single, no child, currently homeless and unemployed, was brought into the ER yesterday due to feeling depressed and suicidal again. Pt has a hx of anxiety, depression, diagnosed 2013 by a psychiatrist and has been abusing heroin and cocaine for 10 years. The pt has hx of multiple rehab and detox attempts, and he was in our program 2 weeks ago and referred to [facility] in [place]. However, since he used on the way, they sent him to [facility] but they didn't take him back afterwards. Since then he has been using 10 bags IV heroin and 1 gm cocaine. Pt mentions heroin use made him depressed, has sxs of guilt, sad mood, and poor sleep. He also reports feelings of hopelessness and helplessness, and unable to concentrate. He denies hallucinations, or any suicidal ideation or any homicidal ideation. He was suicidal just before admission, though. He reports of withdrawal symptoms of heroin abuse including nausea, cramps, headaches, anxiety and body aches. Medical Hx - Hepatitis C Fam Hx - denies Current Medications: Active Medications Generic Name Dose Route Start Last Admin Trade Name Freq PRN Reason Stop Dose Admin Al Hydrox/Mg Hydrox/Simethicone 30 ml 11/27/17 06:32 Maalox 30 Ml PO TID PRN Indigestion / Heartburn Clonidine HCl 0.1 mg 11/27/17 06:32 Catapres PO Q8 PRN COWS Score More or Equal to 5 Loperamide HCl 2 mg 11/27/17 06:32 Imodium PO Q8 PRN Diarrhea Ondansetron HCl 4 mg 11/27/17 06:32 Zofran Tab PO Q8 PRN Nausea/Vomiting Pneumococcal Polyvalent Vaccine 0.5 ml 11/29/17 10:00 Pneumovax 23 Vaccine IM 11/29/17 10:01 .ONCE ONE Pseudoephedrine HCl 60 mg 11/27/17 06:32 Sudafed Tab PO QID PRN Nasal/Sinus Congestion Past Psychiatric History - Past Psychiatric History Previous Treatment History: Inpatient Pertinent Medical Hx (Current Medical&Sleep Prob, Allergies): Allergies Allergy/AdvReac Type Severity Reaction Status Date / Time banana Allergy SWELLING Verified 11/26/17 14:05 nut - unspecified Allergy Verified 11/26/17 14:05 No Known Home Med 11/19/17 Review of Systems - Neurological Neurological: UNREMARKABLE - Psychiatric Psychiatric: Abnormal Sleep Pattern, Anhedonia, Anxiety, Change in Appetite, Depression, Difficulty Concentrating, Irritability. absent: Hallucinations, Homicidal Ideation, Paranoia, Suicidal Ideation Mental Status Examination - Personal Presentation Personal Presentation: Looks stated age - Affect Affect: Constricted - Motor Activity Motor Activity: Calm - Reliability in Providing Information Reliability in Providing Information: Good - Speech Speech: Organized - Mood Mood: Depressed - Formal Thought Process Formal Thought Process: No Impairment - Cognitive Functions Orientation: Person, Place, Situation, Time Sensorium: Alert Attention/Concentration: Easily distracted Estimate of Intelligence: Average Judgement: Intact, as evidence by: Insight regarding need for hospitalization Memory: Recent intact, as evidence by: Ability to recall events of the day, Remote intact, as evidenced by: Abilit to recall sig. life events - Risk Risk: Withdrawal, Diminished functioning - Strength & Assets Inventory Strength & Assets Inventory: Cooperative - Limitations Limitations: Living alone DSM 5 DX - DSM 5 DSM 5 Diagnosis: Major depressive disorder recurrent severe without psychotic features Opioid use disorder severe Opioid withdrawal Cocaine use disorder severe Cannabis use disorder moderate Tobacco use d/o - severe - Recommended/Plan of Treatment Treatment Recommendations and Plan of Treatment: Remeron for depression CBT for depression Groups and activities Psychoeducation Supportive therapy Methadone taper Gabapentin for augmentation Trazodone for insomnia Hydroxyzine for anxiety, plus other prn meds Use DC for abstinence Antibiotic and med consult for the skin lesion in his back Nicotine patch and DC for tobacco 35 min Projected ELOS: 5-6 days Prognosis: good w treatment - Smoking Cessation Smoking Cessation Initiated: Yes
--- NOTE | 2017-11-27 16:44 | CP.PCM.CON ---
<Natalia Perdue - Last Filed: 11/27/17 16:50> History of Present Illness - History of Present Illness History of Present Illness: cc: abscess Mr. Torres is a 37 year old male PMH polysubstance abuse at [facility] [place] for depression and detox consulted for growing abscess on his R shoulder. Patient reports that the achey pain started about a week ago, but noticed the blemish when it was pimple like about two weeks ago. The pain radiates from his back to up his neck and just past the tip of his shoulder. Patient cannot put any weight on it, ie sleeping on his side; even the gown touching it causes him pain. At its worst, the pain was 9/10 but has reduced to a 7/10 with Motrin. Despite getting Keflex in the ED, the redness has expanded beyond marked borders and the pain has not subsided. The patient readily admits drug use. He usually uses 10 bags of heroin each days. His last use was 4 bags of heroin immediately prior to admission. Admits fatigue and weakness, difficulty taking deep inspiration characterized as chest tightness, chills; all of which he has experienced as a result during prior detox attempts. Currently denies suicidal ideation, chest pain, fever, changes in vision or hearing, headache, cough, nausea, vomiting, difficulty voiding. PMH: depression, anxiety, HepC PSxH: denies FamHx: father: bladder [place] - at 61. Mother and daughter alive and well SocHx: Regular heroin and cocaine user, IVDU, averages 10 bags/day. 10 cigs/ day. Denies EtOH. Homeless, lives with his mother about 1 week/month. 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 absent: Anorexia, Daytime Sleepiness, Fever, Weight Gain, Weight Loss - EENT Eyes: Photophobia. absent: Diplopia, Discharge, Dry Eye, Pain Ears: absent: Ear Discharge, Tinnitus, Disequilibrium Nose/Mouth/Throat: Nasal Discharge. absent: Epistaxis, Nasal Congestion, Dysphagia, Halitosis, Odynophagia, Throat Swelling - Cardiovascular Cardiovascular: absent: Chest Pain, Diaphoresis, Dyspnea, Lightheadedness, Palpitations - Respiratory Respiratory: absent: Cough, Dyspnea - Gastrointestinal Gastrointestinal: absent: Constipation, Diarrhea, Dysphagia, Hematemesis, Hematochezia, Melena - Genitourinary Genitourinary: absent: Urinary Frequency, Urinary Hesitance - Musculoskeletal Musculoskeletal: Back Pain. absent: Arthralgias, Deformity, Tingling - Integumentary Integumentary: Non-Healing Lesions, Rash, Skin Ulcer - Neurological Neurological: absent: Convulsions, Frequent Falls, Headaches, Loss of Vision, Syncope, Tingling - Psychiatric Psychiatric: Anxiety, Depression. absent: Hallucinations, Panic Attacks, Suicidal Ideation - Endocrine Endocrine: Excessive Sweating. absent: Cold Intolorance, Heat Intolorance - Hematologic/Lymphatic Hematologic: absent: Easy Bleeding, Easy Bruising Past Patient History - Past Medical History & Family History Pertinent Family History: father: bladder [place] - at 61 - Past Social History Smoking Status: Heavy Smoker > 10 Cigarettes Daily Alcohol: None Drugs: Cocaine, Opiates - CARDIAC Hx Atrial Fibrillation: No Hx Cardia Arrhythmia: No Hx Congestive Heart Failure: No Hx Hypercholesterolemia: No Hx Hypertension: No - PULMONARY Hx Emphysema: No - NEUROLOGICAL Hx Seizures: No - HEENT Hx HEENT Problems: No - RENAL Hx Chronic Kidney Disease: No - ENDOCRINE/METABOLIC Hx Endocrine Disorders: No - HEMATOLOGICAL/ONCOLOGICAL Hx Hepatitis C: Yes Hx Human Immunodeficiency Virus (HIV): No (HIV negative) - INTEGUMENTARY Hx Dermatological Problems: No - MUSCULOSKELETAL/RHEUMATOLOGICAL Hx Musculoskeletal Disorders: No - GASTROINTESTINAL Hx Gastrointestinal Disorders: No - GENITOURINARY/GYNECOLOGICAL Hx Sexually Transmitted Disorders: No - PSYCHIATRIC Hx Anxiety: Yes Hx Depression: Yes Hx Substance Use: Yes - SURGICAL HISTORY Hx Surgeries: No - ANESTHESIA Hx Anesthesia: No Meds Allergies/Adverse Reactions: Allergies Allergy/AdvReac Type Severity Reaction Status Date / Time banana Allergy SWELLING Verified 11/26/17 14:05 nut - unspecified Allergy Verified 11/26/17 14:05 - Medications Medications: Current Medications Al Hydrox/Mg Hydrox/Simethicone (Maalox 30 Ml) 30 ml PO TID PRN PRN Reason: Indigestion / Heartburn Amoxicillin/Clavulanate Potassium (Augmentin 875 Mg-125 Mg Tab) 1 tab PO Q12H KRISTINE PRN Reason: Protocol Cephalexin Monohydrate (Keflex) 500 mg PO BID KRISTINE PRN Reason: Protocol Last Admin: 11/27/17 12:13 Dose: 500 mg Clonidine HCl (Catapres) 0.1 mg PO Q8 PRN PRN Reason: COWS Score More or Equal to 5 Ibuprofen (Motrin Tab) 600 mg PO Q6 PRN PRN Reason: Pain, severe (8-10) Last Admin: 11/27/17 14:57 Dose: 600 mg Loperamide HCl (Imodium) 2 mg PO Q8 PRN PRN Reason: Diarrhea Methadone HCl (Methadone) 15 mg PO Q24H KRISTINE PRN Reason: Taper Stop: 12/02/17 09:59 Mirtazapine (Remeron) 15 mg PO HS KRISTINE Ondansetron HCl (Zofran Tab) 4 mg PO Q8 PRN PRN Reason: Nausea/Vomiting Pneumococcal Polyvalent Vaccine (Pneumovax 23 Vaccine) 0.5 ml IM .ONCE ONE Stop: 11/29/17 10:01 Pseudoephedrine HCl (Sudafed Tab) 60 mg PO QID PRN PRN Reason: Nasal/Sinus Congestion Trimethoprim/Sulfamethoxazole (Bactrim Ds Tab) 1 tab PO Q12H KRISTINE PRN Reason: Protocol Stop: 12/03/17 22:01 Last Admin: 11/27/17 12:13 Dose: 1 tab Physical Exam - Constitutional Appears: Non-toxic, No Acute Distress, Unkempt - Head Exam Head Exam: ATRAUMATIC, NORMOCEPHALIC - Eye Exam Eye Exam: EOMI, Normal appearance, PERRL Pupil Exam: NORMAL ACCOMODATION - ENT Exam ENT Exam: Mucous Membranes Moist - Neck Exam Neck exam: Positive for: Tenderness. Negative for: Full Rom Additional comments: 5x7cm oval lesion with blanching erythema slightly lateral at the levels at T 2- 4, connecting to a 2x3cm open lesion 15cc milky bloody pus easily milked from wound current skin marking drawn during ED reduced forward flexion 2/2 pain - Respiratory Exam Respiratory Exam: Clear to Auscultation Bilateral, NORMAL BREATHING PATTERN. absent: Rales, Rhonchi, Wheezes - Cardiovascular Exam Cardiovascular Exam: REGULAR RHYTHM, +S1, +S2. absent: Systolic Murmur - GI/Abdominal Exam GI & Abdominal Exam: Normal Bowel Sounds, Soft. absent: Tenderness - Extremities Exam Extremities exam: Negative for: full ROM Additional comments: R UE: unable to active ROM in any direction above 90 degrees 2/2 pain. Can abduct to 100 degrees passively before pain becomes too much full active and passive ROM on L UE - Neurological Exam Neurological exam: Alert, CN II-XII Intact, Normal Gait, Oriented x3, Reflexes Normal - Psychiatric Exam Psychiatric exam: Anxious, Depressed - Skin Skin Exam: Normal Color, Warm Results - Vital Signs Recent Vital Signs: Last Vital Signs Temp 98.8 F 11/27/17 06:49 Pulse 71 11/27/17 15:57 Resp 20 11/27/17 06:49 BP 121/74 11/27/17 15:57 Pulse Ox 98 11/26/17 16:55 - Labs Result Diagrams: 11/26/17 14:55 11/26/17 14:55 Assessment & Plan - Assessment and Plan (Free Text) Assessment: 37yo M PH polysubstance abuse admitted for depression and detox consulted for worsening R neck/shoulder abscess. Plan: Abscess - f/u wound Cx - f/u CT soft tissue - Keflex 500mg po bid (started 11/27) - Augmentin 875/125mg po bid (started 11/27) - Bactrim 1 tab po q12 (started 11/27) - Ibuprofen 600mg po q6 prn - irrigate with NS daily and cover with clean 4x4 Polysubstance abuse - Methodone taper per psychiatry - Sudafed 60mg po qid prn - Zofran 4mg po q8 prn - Imodium 2mg po q8 prn - Maalox 30ml po tid prn Depression - currently denies any suicidal ideations - Remeron 15mg po HS - Clonidine 0/1mg po q8 prn Tobacco Use - educated on cessation - Nicotine patch 14mg/day TD daily PPx DVT: not indicated at this time, patient is ambulatory GI: not indicated Heart Healthy Diet Patient should be transferred to Medicine if PO antibiotics do not show improvement tomorrow for IV antibiotic and higher level of medical care. d/w Dr. Heidi Perdue PGY-1 - Date & Time Date: 11/27/17 Time: 16:30 <Helder Gordon - Last Filed: 11/27/17 17:38> Meds - Medications Medications: Current Medications Al Hydrox/Mg Hydrox/Simethicone (Maalox 30 Ml) 30 ml PO TID PRN PRN Reason: Indigestion / Heartburn Amoxicillin/Clavulanate Potassium (Augmentin 875 Mg-125 Mg Tab) 1 tab PO Q12H KRISTINE PRN Reason: Protocol Cephalexin Monohydrate (Keflex) 500 mg PO BID KRISTINE PRN Reason: Protocol Last Admin: 11/27/17 12:13 Dose: 500 mg Clonidine HCl (Catapres) 0.1 mg PO Q8 PRN PRN Reason: COWS Score More or Equal to 5 Ibuprofen (Motrin Tab) 600 mg PO Q6 PRN PRN Reason: Pain, severe (8-10) Last Admin: 11/27/17 14:57 Dose: 600 mg Loperamide HCl (Imodium) 2 mg PO Q8 PRN PRN Reason: Diarrhea Methadone HCl (Methadone) 15 mg PO Q24H KRISTINE PRN Reason: Taper Stop: 12/02/17 09:59 Mirtazapine (Remeron) 15 mg PO HS KRISTINE Nicotine (Nicoderm Cq) 1 patch TD DAILY KRISTINE Ondansetron HCl (Zofran Tab) 4 mg PO Q8 PRN PRN Reason: Nausea/Vomiting Pneumococcal Polyvalent Vaccine (Pneumovax 23 Vaccine) 0.5 ml IM .ONCE ONE Stop: 11/29/17 10:01 Pseudoephedrine HCl (Sudafed Tab) 60 mg PO QID PRN PRN Reason: Nasal/Sinus Congestion Trimethoprim/Sulfamethoxazole (Bactrim Ds Tab) 1 tab PO Q12H KRISTINE PRN Reason: Protocol Stop: 12/03/17 22:01 Last Admin: 11/27/17 12:13 Dose: 1 tab Results - Vital Signs Recent Vital Signs: Last Vital Signs Temp 98.8 F 11/27/17 06:49 Pulse 71 11/27/17 15:57 Resp 20 11/27/17 06:49 BP 121/74 11/27/17 15:57 Pulse Ox 98 11/26/17 16:55 - Labs Result Diagrams: 11/26/17 14:55 11/26/17 14:55 Attending/Attestation - Attestation I have personally seen and examined this patient.: Yes I have fully participated in the care of the patient.: Yes I have reviewed all pertinent clinical information: Yes Notes (Text): Medical consult: Patient was seen and examined by me. Agree with the above note by the resident. Patient was not in any acute distress when we came and saw him. He was actively walking actively in the hallway Inspected the area and I tried to push out a lot of the puss and debris - there was some fluctulance and the puss was taken with wound culture to see if it grows anything, there is more induration when pressing on the tissue. Erethema and also warm to touch. Change abx to PO Augmentin and also check blood cultures. There will be a CT of the soft tissue of the neck to see if there is fluid deeper in the neck. If this continues to get worse tommorow then we will need to bring him over to the medical floor for IV antibiotics. Helder Gordon
[2017-11-27] MEDS: Amoxicillin-Clav 875-125 mg Tab PO SCH (19:22)
[2017-11-28] MEDS ORDERED: Tramadol 25 mg PO ONE (01:30)
[2017-11-28 07:15] LABS: BASO # 0.1 K/uL (0.0-0.2); BASO % 0.6 % (0.0-2.0); EOS # 0.5 K/uL (0.0-0.7); EOS % 5.2 % (0.0-4.0); HEMOGLOBIN 13.1 g/dL (12.0-18.0); LYMPH # 2.3 K/uL (1.0-4.3); LYMPH % 23.9 % (20.0-40.0); MEAN CELL VOLUME 91.3 fL (80.0-94.0); MEAN CORPUSCULAR HEMOGLOBIN 31.9 pg (27.0-31.0); MEAN CORPUSCULAR HGB CONC 34.9 g/dL (33.0-37.0); MEAN PLATELET VOLUME 7.4 fL (7.2-11.7); MONO # 0.9 K/uL (0.0-0.8); MONO % 9.6 % (0.0-10.0); NEUT # 5.9 K/uL (1.8-7.0); NEUT % 60.7 % (50.0-75.0); RBC 4.1 Mil/uL (4.40-5.90); RED CELL DISTRIBUTION WIDTH 13.7 % (11.5-14.5); WHITE BLOOD COUNT 9.6 K/uL (4.8-10.8)
[2017-11-28 07:25] LABS: ALB/GLOB RATIO 0.9 (1.0-2.1); ALBUMIN 3.4 g/dL (3.5-5.0); ALT/SGPT 38 U/L (21-72); AST/SGOT 23 U/L (17-59); BLOOD UREA NITROGEN 10 mg/dL (9-20); CALCIUM 9.1 mg/dl (8.6-10.4); GFR NON-AFRICAN AMERICAN > 60
[2017-11-28] MEDS: Amoxicillin-Clav 875-125 mg Tab PO SCH (07:54)
--- NOTE | 2017-11-28 10:49 | PCM.PYCHPN ---
Mental Status Examination - Cognitive Function Orientation: Person, Place, Situation, Time - Mood Mood: Depressed - Affect Affect: Constricted - Formal Thought Process Formal Thought Process: No Impairment
--- NOTE | 2017-11-28 10:49 | CT ---
Date of service: 11/27/2017 PROCEDURE: CT NECK WITHOUT CONTRAST HISTORY: abscess COMPARISON: None available. TECHNIQUE: CT of the neck without intravenous contrast. Coronal and sagittal reformats generated. Radiation dose: DLP 577.05 mGy-cm This CT exam was performed using one or more of the following dose reduction techniques: Automated exposure control, adjustment of the mA and/or kV according to patient size, and/or use of iterative reconstruction technique. FINDINGS: NASOPHARYNX: There is mild adenoid hypertrophy. SUPRAHYOID NECK: There is no bulky mass in the oropharynx, oral cavity, parapharyngeal space and retropharyngeal space. INFRAHYOID NECK: Unremarkable larynx, hypopharynx, and supraglottic space. Vocal cords intact. MASS: No bulky mass. GLANDS: Parotid and submandibular glands unremarkable. Normal size thyroid gland, without nodule. LYMPH NODES: There are enlarged shotty left submandibular, cervical chain, posterior triangle and supraclavicular lymph nodes. There are also enlarged right supraclavicular lymph nodes. CERVICAL SPINE: No fracture or focal lesion. OTHER FINDINGS: There is moderate circumferential mural thickening in the left maxillary sinus. There is severe subcutaneous inflammatory changes and fluid in the lower posterior soft tissues of the neck without evidence for drainable fluid collection. IMPRESSION: 1. cellulitis in the posterior lower neck without evidence for drainable fluid collection. 2. Moderate circumferential mural thickening in the left maxillary sinus which may represent acute and/or chronic sinusitis. 3. Left cervical lymphadenopathy and bilateral supraclavicular lymphadenopathy, nonspecific and may be reactive, infectious or inflammatory in etiology. Follow-up is A preliminary report was provided by [facility].
--- NOTE | 2017-11-28 17:41 | CP.PCM.PN ---
<Joselyn Anaya - Last Filed: 11/28/17 17:52> Subjective - Date & Time of Evaluation Date of Evaluation: 11/28/17 Time of Evaluation: 17:37 - Subjective Subjective: Pt examined at bedside in no acute distress. Pt reports pain has not been improving and he has continued drainage. Pt denies chest pain, SOB, n/v/d Objective - Vital Signs/Intake and Output Vital Signs (last 24 hours): Temp Pulse Resp BP Pulse Ox 98.6 F 67 20 110/65 98 11/28/17 06:42 11/28/17 16:02 11/28/17 06:42 11/28/17 16:02 11/26/17 16:55 - Medications Medications: Current Medications Al Hydrox/Mg Hydrox/Simethicone (Maalox 30 Ml) 30 ml PO TID PRN PRN Reason: Indigestion / Heartburn Clonidine HCl (Catapres) 0.1 mg PO Q8 PRN PRN Reason: COWS Score More or Equal to 5 Vancomycin HCl 1,000 mg/ (Sodium Chloride) 250 mls @ 166.6 mls/hr IVPB Q12H KRISTINE PRN Reason: Protocol Ibuprofen (Motrin Tab) 600 mg PO Q6 PRN PRN Reason: Pain, severe (8-10) Last Admin: 11/28/17 17:07 Dose: 600 mg Loperamide HCl (Imodium) 2 mg PO Q8 PRN PRN Reason: Diarrhea Methadone HCl (Methadone) 15 mg PO Q24H KRISTINE PRN Reason: Taper Stop: 12/02/17 09:59 Last Admin: 11/28/17 10:04 Dose: 15 mg Mirtazapine (Remeron) 15 mg PO HS [facility] Last Admin: 11/27/17 21:22 Dose: 15 mg Nicotine (Nicoderm Cq) 1 patch TD DAILY [facility] [place] Last Admin: 11/28/17 10:04 Dose: 1 patch Ondansetron HCl (Zofran Tab) 4 mg PO Q8 PRN PRN Reason: Nausea/Vomiting Pneumococcal Polyvalent Vaccine (Pneumovax 23 Vaccine) 0.5 ml IM .ONCE ONE Stop: 11/29/17 10:01 Pseudoephedrine HCl (Sudafed Tab) 60 mg PO QID PRN PRN Reason: Nasal/Sinus Congestion - Labs Labs: 11/28/17 07:00 11/28/17 07:00 - Constitutional Appears: Non-toxic, No Acute Distress - Head Exam Head Exam: ATRAUMATIC, NORMAL INSPECTION, NORMOCEPHALIC - Eye Exam Eye Exam: EOMI, Normal appearance - ENT Exam ENT Exam: Mucous Membranes Moist, Normal Exam - Neck Exam Neck Exam: Lymphadenopathy - Respiratory Exam Respiratory Exam: Clear to Ausculation Bilateral, NORMAL BREATHING PATTERN. absent: Wheezes - Cardiovascular Exam Cardiovascular Exam: REGULAR RHYTHM, +S1, +S2. absent: Tachycardia, Murmur - GI/Abdominal Exam GI & Abdominal Exam: Soft, Normal Bowel Sounds. absent: Distended, Tenderness - Extremities Exam Extremities Exam: Normal Inspection. absent: Calf Tenderness, Pedal Edema - Back Exam Additional comments: Right upper back area of erythema, induration w/ pockets of fluctuance. Red and warm to touch, erythema extending beyond previously circumscribed border. Actively draining purulent matter - Neurological Exam Neurological Exam: Alert, Awake, Oriented x3 - Psychiatric Exam Psychiatric exam: Normal Affect, Normal Mood - Skin Skin Exam: Dry, Intact, Normal Color, Warm Assessment and Plan - Assessment and Plan (Free Text) Assessment: 37 yo M w/ PMHx of opioid dependence and recurrent Hep C s/p tx currently admitted to psych for withdrawal, transferred for IV Abx tx of right upper back cellulitis Right upper back cellulitis -CT neck (11/27) reads cellulitis without any discrete drainable fluid collection -transfer to med-surg -vanco 1g q12 -vanc trough 11/30 @5am -f/u wound cx -Sx consult Dr. Jin Opioid Withdrawal -clonidine .1mg q8 prn -methadone 15mg qd -remeron 15mg po hs -zofran 4mg po q8 prn -toradol 15mg <Clair Esquivel - Last Filed: 12/01/17 12:17> Objective - Vital Signs/Intake and Output Vital Signs (last 24 hours): Temp Pulse Resp BP Pulse Ox 97.7 F 55 L 20 108/65 97 12/01/17 07:46 12/01/17 07:46 12/01/17 07:46 12/01/17 07:46 12/01/17 07:46 - Medications Medications: Current Medications Al Hydrox/Mg Hydrox/Simethicone (Maalox 30 Ml) 30 ml PO TID PRN PRN Reason: Indigestion / Heartburn Clonidine HCl (Catapres) 0.1 mg PO Q8 PRN PRN Reason: COWS Score More or Equal to 5 Piperacillin Sod/Tazobactam Sod (Zosyn 3.375 Gm Iv Premix) 3.375 gm in 50 mls @ 100 mls/hr IVPB Q6H KRISTINE; Protocol Last Admin: 12/01/17 12:03 Dose: 100 mls/hr Clindamycin Phosphate 600 mg/ (Sodium Chloride) 54 mls @ 100 mls/hr IVPB Q8H KRISTINE; Protocol Last Admin: 12/01/17 10:28 Dose: 100 mls/hr Ketorolac Tromethamine (Toradol) 15 mg IVP Q6 PRN PRN Reason: Pain, moderate (4-7) Last Admin: 11/30/17 20:30 Dose: 15 mg Loperamide HCl (Imodium) 2 mg PO Q8 PRN PRN Reason: Diarrhea Methadone HCl (Methadone) 5 mg PO Q24H KRISTINE; Taper Stop: 12/02/17 09:59 Last Admin: 12/01/17 10:28 Dose: 5 mg Mirtazapine (Remeron) 15 mg PO HS [facility] Last Admin: 11/30/17 21:19 Dose: 15 mg Nicotine (Nicoderm Cq) 1 patch TD DAILY [facility] [place] Last Admin: 12/01/17 10:27 Dose: 1 patch Ondansetron HCl (Zofran Tab) 4 mg PO Q8 PRN PRN Reason: Nausea/Vomiting Pseudoephedrine HCl (Sudafed Tab) 60 mg PO QID PRN PRN Reason: Nasal/Sinus Congestion - Labs Labs: 12/01/17 07:20 12/01/17 07:20 PT 11.8 SECONDS (9.7-12.2) 11/30/17 08:23 INR 1.1 11/30/17 08:23 APTT 31 SECONDS (21-34) 11/30/17 08:23 Attending/Attestation - Attestation I have personally seen and examined this patient.: Yes I have fully participated in the care of the patient.: Yes I have reviewed all pertinent clinical information, including history, physical exam and plan: Yes Notes (Text): Seen and examined with the resident Has big carbuncle with surrounding cellulites and a small abscess with purulent discharge next to it No h/o diabetes Needs I and D and IV antibiotics D/W Resident I agree with her documentation of the assessment and the plan
--- NOTE | 2017-11-28 18:53 | CP.PCM.CON ---
<Suha Velasquez - Last Filed: 11/29/17 00:12> History of Present Illness - History of Present Illness History of Present Illness: General surgery consult note for Dr. Veronica Velasquez, PGY-2 Pt S & E at bedside at 1830 37M w/PMH sig for Hep C & IV drub abuse consulted for Right shoulder cellulitis x 1 week. Pt reports noticing a pimple over right shoulder, enlarging overtime, started to drain purulent material after pt picked at it, painful to pressure. Pain is moderate, non radiating, constant, aggravated by pressure, alleviated by Aleve. Admits to fevers, chest congestion, pain with deep inspiration, decreased appetite. Denies N & V, chills, changes in bowel or bladder habits, changes in CT neck with soft tissue swelling, no drainable collection noted. Afebrile. No current leukocytosis. PMH: Hep C PSH: Denies All: banana (hives, swelling) SH: Admits to tobacco use - 1ppd x 10 yrs, denies ETOH use, admits to heroin & cocaine use FH: Non contributory PMD: Denies Past Patient History - Past Social History Smoking Status: Heavy Smoker > 10 Cigarettes Daily Alcohol: None Drugs: Cocaine, Opiates - CARDIAC Hx Atrial Fibrillation: No Hx Cardia Arrhythmia: No Hx Congestive Heart Failure: No Hx Hypercholesterolemia: No Hx Hypertension: No - PULMONARY Hx Emphysema: No - NEUROLOGICAL Hx Seizures: No - HEENT Hx HEENT Problems: No - RENAL Hx Chronic Kidney Disease: No - ENDOCRINE/METABOLIC Hx Endocrine Disorders: No - HEMATOLOGICAL/ONCOLOGICAL Hx Hepatitis C: Yes Hx Human Immunodeficiency Virus (HIV): No (HIV negative) - INTEGUMENTARY Hx Dermatological Problems: No - MUSCULOSKELETAL/RHEUMATOLOGICAL Hx Musculoskeletal Disorders: No - GASTROINTESTINAL Hx Gastrointestinal Disorders: No - GENITOURINARY/GYNECOLOGICAL Hx Sexually Transmitted Disorders: No - PSYCHIATRIC Hx Substance Use: Yes - SURGICAL HISTORY Hx Surgeries: No - ANESTHESIA Hx Anesthesia: No Meds Allergies/Adverse Reactions: Allergies Allergy/AdvReac Type Severity Reaction Status Date / Time banana Allergy SWELLING Verified 11/26/17 14:05 nut - unspecified Allergy Verified 11/26/17 14:05 - Medications Medications: Current Medications Al Hydrox/Mg Hydrox/Simethicone (Maalox 30 Ml) 30 ml PO TID PRN PRN Reason: Indigestion / Heartburn Clonidine HCl (Catapres) 0.1 mg PO Q8 PRN PRN Reason: COWS Score More or Equal to 5 Vancomycin HCl 1,000 mg/ (Sodium Chloride) 250 mls @ 166.6 mls/hr IVPB Q12H [facility] PRN Reason: Protocol Ketorolac Tromethamine (Toradol) 15 mg IVP Q6 PRN PRN Reason: Pain, moderate (4-7) Loperamide HCl (Imodium) 2 mg PO Q8 PRN PRN Reason: Diarrhea Methadone HCl (Methadone) 15 mg PO Q24H [facility] PRN Reason: Taper Stop: 12/02/17 09:59 Last Admin: 11/28/17 10:04 Dose: 15 mg Mirtazapine (Remeron) 15 mg PO HS [facility] Last Admin: 11/27/17 21:22 Dose: 15 mg Nicotine (Nicoderm Cq) 1 patch TD DAILY [facility] Last Admin: 11/28/17 10:04 Dose: 1 patch Ondansetron HCl (Zofran Tab) 4 mg PO Q8 PRN PRN Reason: Nausea/Vomiting Pneumococcal Polyvalent Vaccine (Pneumovax 23 Vaccine) 0.5 ml IM .ONCE ONE Stop: 11/29/17 10:01 Pseudoephedrine HCl (Sudafed Tab) 60 mg PO QID PRN PRN Reason: Nasal/Sinus Congestion Physical Exam - Constitutional Appears: Non-toxic, No Acute Distress - Head Exam Head Exam: ATRAUMATIC, NORMAL INSPECTION, NORMOCEPHALIC - Eye Exam Eye Exam: EOMI, Normal appearance - ENT Exam ENT Exam: Mucous Membranes Moist, Normal Exam - Neck Exam Neck exam: Positive for: Full Rom, Normal Inspection - Respiratory Exam Respiratory Exam: Clear to Auscultation Bilateral, NORMAL BREATHING PATTERN. absent: Rales, Rhonchi, Wheezes, Respiratory Distress - Cardiovascular Exam Cardiovascular Exam: REGULAR RHYTHM, +S1, +S2 - GI/Abdominal Exam GI & Abdominal Exam: Normal Bowel Sounds, Soft. absent: Distended, Tenderness - Extremities Exam Extremities exam: Positive for: normal inspection - Back Exam Back exam: absent: NORMAL INSPECTION (large area of cellulitis over right shoulder/scapular area with purulent drainage at lateral aspect, induration, no palpable fluctuance, tender to palpation) - Neurological Exam Neurological exam: Alert, CN II-XII Intact, Oriented x3 - Psychiatric Exam Psychiatric exam: Normal Affect, Normal Mood - Skin Skin Exam: Erythema (Right shoulder), Warm Results - Vital Signs Recent Vital Signs: Last Vital Signs Temp 98.6 F 11/28/17 06:42 Pulse 67 11/28/17 16:02 Resp 11/28/17 06:42 BP 110/65 11/28/17 16:02 Pulse Ox 98 11/26/17 16:55 - Labs Result Diagrams: 11/28/17 07:00 11/28/17 07:00 Labs: Laboratory Results - last 24 hr 11/28/17 11/28/17 07:00 07:00 WBC 9.6 RBC 4.10 L Hgb 13.1 Hct 37.4 MCV 91.3 MCH 31.9 H MCHC 34.9 RDW 13.7 Plt Count 206 MPV 7.4 Neut % (Auto) 60.7 Lymph % (Auto) 23.9 Ramsey % (Auto) 9.6 Eos % (Auto) 5.2 H Baso % (Auto) 0.6 Neut # (Auto) 5.9 Lymph # (Auto) 2.3 Ramsey # (Auto) 0.9 H Eos # (Auto) 0.5 Baso # (Auto) 0.1 Sodium 142 Potassium 4.1 Chloride 106 Carbon Dioxide 31 H Anion Gap 10 BUN 10 Creatinine 0.7 L Est GFR ( Amer) > 60 Est GFR (Non-Af Amer) > 60 Random Glucose 101 Calcium 9.1 Total Bilirubin 0.4 AST 23 ALT 38 Alkaline Phosphatase 67 Total Protein 7.1 Albumin 3.4 L Globulin 3.6 Albumin/Globulin Ratio 0.9 L Assessment & Plan - Assessment and Plan (Free Text) Assessment: 37M w/Right shoulder cellulitis/pain Plan: IV Abx Pain control Warm compresses to Right shoulder No drainable collection on PE or CT neck Will monitor DW Dr Davin Velasquez, PGY-2 - Date & Time Date: 11/28/17 Time: 18:40 <Eddie Jin - Last Filed: 12/04/17 19:47> Results - Vital Signs Recent Vital Signs: Last Vital Signs Temp 97.8 F 12/02/17 07:00 Pulse 58 L 12/02/17 07:00 Resp 12/02/17 07:00 BP 106/64 12/02/17 07:00 Pulse Ox 98 12/02/17 07:00 - Labs Result Diagrams: 12/02/17 07:00 12/02/17 07:00 Attending/Attestation - Attestation I have personally seen and examined this patient.: Yes I have fully participated in the care of the patient.: Yes I have reviewed all pertinent clinical information: Yes Notes (Text): Pt was seen and examine at bedside Agree with above note and assessment Pt with IVDA, Upper back abscess with drainage from side Back: Cellulitis, Developing abscess Labs and Radiology reviewed Ass: Back cellulitis, IVDA Plan : IV antibiotics Local wound care OR for Drainage on Tuesday repeat Labs in am Plan d.w pt in detail Risk and benefit explained in detail
[2017-11-29 07:46] LABS: BASO # 0.1 K/uL (0.0-0.2); BASO % 0.8 % (0.0-2.0); EOS # 0.5 K/uL (0.0-0.7); HEMOGLOBIN 13.8 g/dL (12.0-18.0); LYMPH # 2.4 K/uL (1.0-4.3); LYMPH % 25.9 % (20.0-40.0); MEAN CELL VOLUME 92.1 fL (80.0-94.0); MEAN CORPUSCULAR HEMOGLOBIN 31.8 pg (27.0-31.0); MEAN CORPUSCULAR HGB CONC 34.5 g/dL (33.0-37.0); MEAN PLATELET VOLUME 7.7 fL (7.2-11.7); MONO # 0.9 K/uL (0.0-0.8); MONO % 9.7 % (0.0-10.0); NEUT # 5.3 K/uL (1.8-7.0); NEUT % 58.6 % (50.0-75.0); RBC 4.32 Mil/uL (4.40-5.90); RED CELL DISTRIBUTION WIDTH 14.1 % (11.5-14.5); WHITE BLOOD COUNT 9.1 K/uL (4.8-10.8)
[2017-11-29 07:54] LABS: ALB/GLOB RATIO 0.9 (1.0-2.1); ALBUMIN 3.4 g/dL (3.5-5.0); ALT/SGPT 42 U/L (21-72); AST/SGOT 31 U/L (17-59); BLOOD UREA NITROGEN 15 mg/dL (9-20); CALCIUM 9.2 mg/dl (8.6-10.4); GFR NON-AFRICAN AMERICAN > 60
--- NOTE | 2017-11-29 09:47 | CP.PCM.PN ---
<Reagan Dunbar - Last Filed: 11/29/17 09:44> Subjective - Date & Time of Evaluation Date of Evaluation: 11/29/17 Time of Evaluation: 06:45 - Subjective Subjective: Gen Sx: Dr Jin Pt S&E. NAEO. Afebrile. Abscess has been draining from one site, however endless steamer tender and indurated. Pt doing warm compresses Q2. Denies fevers, chills, nausea, vomiting. No other complaints Objective - Vital Signs/Intake and Output Vital Signs (last 24 hours): Temp Pulse Resp BP Pulse Ox 98.0 F 60 20 116/72 99 11/29/17 07:08 11/29/17 07:08 11/29/17 07:08 11/29/17 07:08 11/29/17 07:08 Intake and Output: 11/29/17 11/29/17 06:59 18:59 Intake Total 240 Balance 240 - Medications Medications: Current Medications Al Hydrox/Mg Hydrox/Simethicone (Maalox 30 Ml) 30 ml PO TID PRN PRN Reason: Indigestion / Heartburn Clonidine HCl (Catapres) 0.1 mg PO Q8 PRN PRN Reason: COWS Score More or Equal to 5 Vancomycin HCl 1,000 mg/ (Sodium Chloride) 250 mls @ 166.6 mls/hr IVPB Q12H [facility]; Protocol Last Admin: 11/29/17 08:57 Dose: 166.6 mls/hr Piperacillin Sod/Tazobactam Sod (Zosyn 3.375 Gm Iv Premix) 3.375 gm in 50 mls @ 100 mls/hr IVPB Q6H [facility]; Protocol Ketorolac Tromethamine (Toradol) 15 mg IVP Q6 PRN PRN Reason: Pain, moderate (4-7) Last Admin: 11/29/17 02:16 Dose: 15 mg Loperamide HCl (Imodium) 2 mg PO Q8 PRN PRN Reason: Diarrhea Methadone HCl (Methadone) 15 mg PO Q24H [facility]; Taper Stop: 12/02/17 09:59 Last Admin: 11/29/17 09:03 Dose: 10 mg Mirtazapine (Remeron) 15 mg PO HS [facility] Last Admin: 11/28/17 21:40 Dose: 15 mg Nicotine (Nicoderm Cq) 1 patch TD DAILY [facility] Last Admin: 11/29/17 09:03 Dose: 1 patch Ondansetron HCl (Zofran Tab) 4 mg PO Q8 PRN PRN Reason: Nausea/Vomiting Pneumococcal Polyvalent Vaccine (Pneumovax 23 Vaccine) 0.5 ml IM .ONCE ONE Stop: 11/29/17 10:01 Pseudoephedrine HCl (Sudafed Tab) 60 mg PO QID PRN PRN Reason: Nasal/Sinus Congestion - Labs Labs: 11/29/17 07:11 11/29/17 07:11 - Constitutional Appears: Non-toxic - ENT Exam ENT Exam: Mucous Membranes Moist - Respiratory Exam Respiratory Exam: absent: Accessory Muscle Use, Respiratory Distress - Cardiovascular Exam Cardiovascular Exam: REGULAR RHYTHM. absent: Tachycardia - GI/Abdominal Exam GI & Abdominal Exam: Soft. absent: Distended, Tenderness - Back Exam Additional comments: 5x11cm abscess on right upper shoulder, indurated, erythematous, tender to palpation - Neurological Exam Neurological Exam: Alert, Awake, Oriented x3 - Psychiatric Exam Psychiatric exam: Normal Affect, Normal Mood Assessment and Plan - Assessment and Plan (Free Text) Assessment: 37M with large back abscess Plan: not fluctuant enough to warrant drainage at this time cont warm compressed Q2H added zosyn for additional coverage will tentatively plan for OR tomorrow for I&D NPO @ CT d/w Dr Davin Dunbar, PGY4 <Eddie Jin B - Last Filed: 12/04/17 19:52> Objective - Vital Signs/Intake and Output Vital Signs (last 24 hours): Temp Pulse Resp BP Pulse Ox 97.8 F 58 L 20 106/64 98 12/02/17 07:00 12/02/17 07:00 12/02/17 07:00 12/02/17 07:00 12/02/17 07:00 - Labs Labs: 12/02/17 07:00 12/02/17 07:00 PT 11.8 SECONDS (9.7-12.2) 11/30/17 08:23 INR 1.1 11/30/17 08:23 APTT 31 SECONDS (21-34) 11/30/17 08:23 Attending/Attestation - Attestation I have personally seen and examined this patient.: Yes I have fully participated in the care of the patient.: Yes I have reviewed all pertinent clinical information, including history, physical exam and plan: Yes Notes (Text): Pt was seen and examine at bedside Agree with above note and assessment Pt is improving clinically Cellulitis is improving with developing abscess IV antibiotics OR tomorrow for I & D and Debridement Consent NPO, IVF Plan d.w pt in detail Risk and benefit explained in detail
[2017-11-29] MEDS ORDERED: Pneumococcal 23-Valent Vaccine IM ONE (10:00)
[2017-11-29] MEDS: Piperacill/Tazo 3.375gm in Dex 3.375 GM/50 ML BAG IVPB SCH ×3 (13:41→23:41)
--- NOTE | 2017-11-29 18:10 | CP.PCM.PN ---
Addendum entered and electronically signed by Joselyn Anaya 11/29/17 18:35: based on sensitivities, Vanco replaced by Clinda 600mg IV q8 Original Note: <Joselyn Anaya - Last Filed: 11/29/17 18:12> Subjective - Date & Time of Evaluation Date of Evaluation: 11/29/17 Time of Evaluation: 09:25 - Subjective Subjective: Pt examined at bedside. No acute events overnight. Pt reports pain is uncha nged from yesterday and wound has been draining. Pt denies chest pain, SOB, n/v/d/c. Objective - Vital Signs/Intake and Output Vital Signs (last 24 hours): Temp Pulse Resp BP Pulse Ox 98.1 F 60 20 109/66 98 11/29/17 17:40 11/29/17 17:40 11/29/17 17:40 11/29/17 17:40 11/29/17 17:40 Intake and Output: 11/29/17 11/29/17 06:59 18:59 Intake Total 240 Balance 240 - Medications Medications: Current Medications Al Hydrox/Mg Hydrox/Simethicone (Maalox 30 Ml) 30 ml PO TID PRN PRN Reason: Indigestion / Heartburn Clonidine HCl (Catapres) 0.1 mg PO Q8 PRN PRN Reason: COWS Score More or Equal to 5 Vancomycin HCl 1,000 mg/ (Sodium Chloride) 250 mls @ 166.6 mls/hr IVPB Q12H [facility]; Protocol Last Admin: 11/29/17 08:57 Dose: 166.6 mls/hr Piperacillin Sod/Tazobactam Sod (Zosyn 3.375 Gm Iv Premix) 3.375 gm in 50 mls @ 100 mls/hr IVPB Q6H [facility]; Protocol Last Admin: 11/29/17 17:53 Dose: 100 mls/hr Ketorolac Tromethamine (Toradol) 15 mg IVP Q6 PRN PRN Reason: Pain, moderate (4-7) Last Admin: 11/29/17 13:42 Dose: 15 mg Loperamide HCl (Imodium) 2 mg PO Q8 PRN PRN Reason: Diarrhea Methadone HCl (Methadone) 10 mg PO Q24H K[facility]STINE; Taper Stop: 12/02/17 09:59 Last Admin: 11/29/17 09:03 Dose: 10 mg Mirtazapine (Remeron) 15 mg PO HS [facility] Last Admin: 11/28/17 21:40 Dose: 15 mg Nicotine (Nicoderm Cq) 1 patch TD DAILY [facility] Last Admin: 11/29/17 09:03 Dose: 1 patch Ondansetron HCl (Zofran Tab) 4 mg PO Q8 PRN PRN Reason: Nausea/Vomiting Pneumococcal Polyvalent Vaccine (Pneumovax 23 Vaccine) 0.5 ml IM .ONCE ONE Stop: 12/01/17 10:01 Pseudoephedrine HCl (Sudafed Tab) 60 mg PO QID PRN PRN Reason: Nasal/Sinus Congestion - Labs Labs: 11/29/17 07:11 11/29/17 07:11 - Constitutional Appears: Non-toxic, No Acute Distress - Head Exam Head Exam: ATRAUMATIC, NORMAL INSPECTION, NORMOCEPHALIC - Eye Exam Eye Exam: EOMI, Normal appearance - ENT Exam ENT Exam: Mucous Membranes Moist, Normal Exam - Respiratory Exam Respiratory Exam: Clear to Ausculation Bilateral, NORMAL BREATHING PATTERN. absent: Wheezes - Cardiovascular Exam Cardiovascular Exam: REGULAR RHYTHM, +S1, +S2. absent: Tachycardia, Murmur - GI/Abdominal Exam GI & Abdominal Exam: Soft, Normal Bowel Sounds. absent: Distended, Tenderness - Neurological Exam Neurological Exam: Alert, Awake, Oriented x3 - Psychiatric Exam Psychiatric exam: Normal Affect, Normal Mood - Skin Skin Exam: Abrasion (right upper back cellulitis actively draining thick purulent fluid.), Dry, Intact, Normal Color, Warm Assessment and Plan - Assessment and Plan (Free Text) Assessment: 37 yo M w/ PMHx of opioid dependence and recurrent Hep C s/p tx currently admitted to psych for withdrawal, transferred for IV Abx tx of right upper back cellulitis Right upper back cellulitis -MRSA+ -CT neck (11/27) reads cellulitis without any discrete drainable fluid collection -transfer to med-surg from psych -vanco 1g q12 -vanc trough 11/30 @5am -zosyn 3.375mg q8 added per sx -possible I and D tomorrow per sx -Sx consult Dr. Jin Opioid Withdrawal -clonidine .1mg q8 prn -methadone 15mg qd -remeron 15mg po hs -zofran 4mg po q8 prn -toradol 15mg <SierraStonequanganita - Last Filed: 12/01/17 12:19> Objective - Vital Signs/Intake and Output Vital Signs (last 24 hours): Temp Pulse Resp BP Pulse Ox 97.7 F 55 L 20 108/65 97 12/01/17 07:46 12/01/17 07:46 12/01/17 07:46 12/01/17 07:46 12/01/17 07:46 - Medications Medications: Current Medications Al Hydrox/Mg Hydrox/Simethicone (Maalox 30 Ml) 30 ml PO TID PRN PRN Reason: Indigestion / Heartburn Clonidine HCl (Catapres) 0.1 mg PO Q8 PRN PRN Reason: COWS Score More or Equal to 5 Piperacillin Sod/Tazobactam Sod (Zosyn 3.375 Gm Iv Premix) 3.375 gm in 50 mls @ 100 mls/hr IVPB Q6H [facility]; Protocol Last Admin: 12/01/17 12:03 Dose: 100 mls/hr Clindamycin Phosphate 600 mg/ (Sodium Chloride) 54 mls @ 100 mls/hr IVPB Q8H [facility]; Protocol Last Admin: 12/01/17 10:28 Dose: 100 mls/hr Ketorolac Tromethamine (Toradol) 15 mg IVP Q6 PRN PRN Reason: Pain, moderate (4-7) Last Admin: 11/30/17 20:30 Dose: 15 mg Loperamide HCl (Imodium) 2 mg PO Q8 PRN PRN Reason: Diarrhea Methadone HCl (Methadone) 5 mg PO Q24H [facility]; Taper Stop: 12/02/17 09:59 Last Admin: 12/01/17 10:28 Dose: 5 mg Mirtazapine (Remeron) 15 mg PO HS [facility] Last Admin: 11/30/17 21:19 Dose: 15 mg Nicotine (Nicoderm Cq) 1 patch TD DAILY [facility] Last Admin: 12/01/17 10:27 Dose: 1 patch Ondansetron HCl (Zofran Tab) 4 mg PO Q8 PRN PRN Reason: Nausea/Vomiting Pseudoephedrine HCl (Sudafed Tab) 60 mg PO QID PRN PRN Reason: Nasal/Sinus Congestion - Labs Labs: 12/01/17 07:20 09/27/18 07:20 PT 11.8 SECONDS (9.7-12.2) 11/30/17 08:23 INR 1.1 11/30/17 08:23 APTT 31 SECONDS (21-34) 11/30/17 08:23 Attending/Attestation - Attestation I have personally seen and examined this patient.: Yes I have fully participated in the care of the patient.: Yes I have reviewed all pertinent clinical information, including history, physical exam and plan: Yes Notes (Text): Seen and examined by me MRSA positive,on Vanco follow C/S Surgery team added amalia and planning for I and D tomorrow d/w resident
[2017-11-30] MEDS: Piperacill/Tazo 3.375gm in Dex 3.375 GM/50 ML BAG IVPB SCH ×3 (05:44→18:24)
[2017-11-30 08:30] LABS: BASO # 0.1 K/uL (0.0-0.2); BASO % 1.2 % (0.0-2.0); EOS # 0.4 K/uL (0.0-0.7); EOS % 5.1 % (0.0-4.0); HEMOGLOBIN 14.1 g/dL (12.0-18.0); LYMPH # 2.3 K/uL (1.0-4.3); LYMPH % 27.2 % (20.0-40.0); MEAN CORPUSCULAR HEMOGLOBIN 31.9 pg (27.0-31.0); MEAN CORPUSCULAR HGB CONC 34.7 g/dL (33.0-37.0); MEAN PLATELET VOLUME 7.1 fL (7.2-11.7); MONO # 0.8 K/uL (0.0-0.8); MONO % 9.2 % (0.0-10.0); NEUT # 4.9 K/uL (1.8-7.0); NEUT % 57.3 % (50.0-75.0); NRBC % 0.1 % (0.0-2.0); RBC 4.42 Mil/uL (4.40-5.90); RED CELL DISTRIBUTION WIDTH 13.6 % (11.5-14.5); WHITE BLOOD COUNT 8.6 K/uL (4.8-10.8)
[2017-11-30 08:38] LABS: INR 1.1; PROTHROMBIN TIME 11.8 SECONDS (9.7-12.2)
[2017-11-30 08:51] LABS: ALB/GLOB RATIO 0.9 (1.0-2.1); ALBUMIN 3.4 g/dL (3.5-5.0); ALT/SGPT 45 U/L (21-72); AST/SGOT 32 U/L (17-59); BLOOD UREA NITROGEN 18 mg/dL (9-20); CALCIUM 9.1 mg/dl (8.6-10.4); GFR NON-AFRICAN AMERICAN > 60
--- NOTE | 2017-11-30 11:39 | CARD ---
APPROVED REPORT Date of service: 11/29/2017 EKG Measurement Heart [id number] MD [id number] <Conclusion> Sinus bradycardia Otherwise normal ECG
[2017-11-30] MEDS ORDERED: Bupivacaine 0.25% 20 ML INJ IJ ONE (16:34)
[2017-11-30] MEDS ORDERED: Midazolam 2 MG/2 ML VIAL ONE ×2 (16:35→17:04)
[2017-11-30] MEDS ORDERED: ceFAZolin 1 gm in NS 0 GM/0 ML BAG IVPB ONE (16:36)
[2017-11-30] MEDS ORDERED: Propofol 10 mg/ml Inj (20 ML) ONE (16:36)
[2017-11-30] MEDS ORDERED: Lidocaine Hydrochloride 5 ML INJ ONE ×2 (16:57→16:58)
--- NOTE | 2017-11-30 17:23 | PCM.SURG1 ---
Surgeon's Initial Post Op Note - Surgeon's Notes Surgeon: Dr. Jin Sales Assistant Displays: Joana Anthony PGY3 Type of Anesthesia: IV Sedation, Local Anesthesia Administered By: Dr. Medel Pre-Operative Diagnosis: back abscesses x2 Operative Findings: two back abscesses with connecting track. purulent fluids. Post-Operative Diagnosis: SAme Operation Performed: Incision and drainage, wound debridement with sharp object of back abscesses. Specimen/Specimens Removed: abscess, necrotic tissues, abscess cavitary membrane Estimated Blood Loss: EBL {In ML}: 20 Blood Products Given: N/A Drains Used: No Drains Post-Op Condition: Good Date of Surgery/Procedure: 11/30/17 Time of Surgery/Procedure: 17:23
[2017-11-30] MEDS: HYDROmorphone 0.5 mg/0.5 ml ISec IVP PRN ×2 (17:30→17:45)
--- NOTE | 2017-11-30 20:40 | CP.PCM.PN ---
<Clara Baxter P - Last Filed: 11/30/17 23:44> Subjective - Date & Time of Evaluation Date of Evaluation: 11/30/17 Time of Evaluation: 08:00 - Subjective Subjective: PGY-[address] Esquivel. Patient was seen and examined at bedside, in no acute distress. He reports feeling better and being able to sleep through the night. Patient stated he was in no current pain and can now lie down on his back. Reports having a good appetite. Denies fevers, chills, n/v/d/c, chest pain, SOB. Patient to have I&D today. Objective - Vital Signs/Intake and Output Vital Signs (last 24 hours): Temp Pulse Resp BP Pulse Ox 98.1 F 65 18 121/74 96 11/30/17 18:28 11/30/17 18:28 11/30/17 18:28 11/30/17 18:28 11/30/17 18:28 Intake and Output: 11/30/17 12/01/17 18:59 06:59 Intake Total 350 Balance 350 - Medications Medications: Current Medications Al Hydrox/Mg Hydrox/Simethicone (Maalox 30 Ml) 30 ml PO TID PRN PRN Reason: Indigestion / Heartburn Clonidine HCl (Catapres) 0.1 mg PO Q8 PRN PRN Reason: COWS Score More or Equal to 5 Piperacillin Sod/Tazobactam Sod (Zosyn 3.375 Gm Iv Premix) 3.375 gm in 50 mls @ 100 mls/hr IVPB Q6H [facility]; Protocol Last Admin: 11/30/17 18:24 Dose: 100 mls/hr Clindamycin Phosphate 600 mg/ (Sodium Chloride) 54 mls @ 100 mls/hr IVPB Q8H [facility]; Protocol Last Admin: 11/30/17 19:00 Dose: 100 mls/hr Ketorolac Tromethamine (Toradol) 15 mg IVP Q6 PRN PRN Reason: Pain, moderate (4-7) Last Admin: 11/30/17 20:30 Dose: 15 mg Loperamide HCl (Imodium) 2 mg PO Q8 PRN PRN Reason: Diarrhea Methadone HCl (Methadone) 5 mg PO Q24H [facility]; Taper Stop: 12/02/17 09:59 Last Admin: 11/30/17 10:09 Dose: 5 mg Mirtazapine (Remeron) 15 mg PO HS [facility] Last Admin: 11/29/17 22:12 Dose: 15 mg Nicotine (Nicoderm Cq) 1 patch TD DAILY [facility] Last Admin: 11/30/17 10:09 Dose: 1 patch Ondansetron HCl (Zofran Tab) 4 mg PO Q8 PRN PRN Reason: Nausea/Vomiting Pneumococcal Polyvalent Vaccine (Pneumovax 23 Vaccine) 0.5 ml IM .ONCE ONE Stop: 12/01/17 10:01 Pseudoephedrine HCl (Sudafed Tab) 60 mg PO QID PRN PRN Reason: Nasal/Sinus Congestion - Labs Labs: 11/30/17 08:23 11/30/17 08:23 PT 11.8 SECONDS (9.7-12.2) 11/30/17 08:23 INR 1.1 11/30/17 08:23 APTT 31 SECONDS (21-34) 11/30/17 08:23 - Constitutional Appears: Non-toxic, No Acute Distress - Head Exam Head Exam: ATRAUMATIC, NORMOCEPHALIC - Eye Exam Eye Exam: EOMI - ENT Exam ENT Exam: Mucous Membranes Moist - Respiratory Exam Respiratory Exam: Clear to Ausculation Bilateral. absent: Rales, Rhonchi, Wheezes - Cardiovascular Exam Cardiovascular Exam: REGULAR RHYTHM, +S1, +S2. absent: Murmur - GI/Abdominal Exam GI & Abdominal Exam: Soft, Normal Bowel Sounds. absent: Guarding, Tenderness, Rebound - Extremities Exam Extremities Exam: Full ROM. absent: Pedal Edema, Tenderness - Neurological Exam Neurological Exam: Alert, Awake, Oriented x3 - Psychiatric Exam Psychiatric exam: Normal Affect, Normal Mood - Skin Additional comments: 5 x11cm abscess on upper back, warm, erythematous with some areas of fluctuance and draining purulent fluid. Assessment and Plan - Assessment and Plan (Free Text) Plan: 37 yo M w/ PMHx of opioid dependence and recurrent Hep C s/p tx currently admitted to psych for withdrawal, transferred for IV Abx tx of right upper back cellulitis Right upper back abscess -MRSA+, contact precautions -CT neck (11/27) reads cellulitis without any discrete drainable fluid collection -zosyn 3.375mg q8 added per surgery -Clindamycin 600mg IV q8 (11/29) added due to sensitivities -vanco 1g q12 dc'ed 11/29 -Surgical consult, Dr. Jin Patient underwent I&D of back abscess 11/30/17 follow up further recs Opioid Withdrawal -clonidine .1mg q8 prn -methadone 15mg qd -remeron 15mg po hs -zofran 4mg po q8 prn -toradol 15mg Prophylaxis Pt ambulatory SCDs <Clair Esquivel - Last Filed: 12/01/17 12:22> Objective - Vital Signs/Intake and Output Vital Signs (last 24 hours): Temp Pulse Resp BP Pulse Ox 97.7 F 55 L 20 108/65 97 12/01/17 07:46 12/01/17 07:46 12/01/17 07:46 12/01/17 07:46 12/01/17 07:46 - Medications Medications: Current Medications Al Hydrox/Mg Hydrox/Simethicone (Maalox 30 Ml) 30 ml PO TID PRN PRN Reason: Indigestion / Heartburn Clonidine HCl (Catapres) 0.1 mg PO Q8 PRN PRN Reason: COWS Score More or Equal to 5 Piperacillin Sod/Tazobactam Sod (Zosyn 3.375 Gm Iv Premix) 3.375 gm in 50 mls @ 100 mls/hr IVPB Q6H [facility]; Protocol Last Admin: 12/01/17 12:03 Dose: 100 mls/hr Clindamycin Phosphate 600 mg/ (Sodium Chloride) 54 mls @ 100 mls/hr IVPB Q8H [facility]; Protocol Last Admin: 12/01/17 10:28 Dose: 100 mls/hr Ketorolac Tromethamine (Toradol) 15 mg IVP Q6 PRN PRN Reason: Pain, moderate (4-7) Last Admin: 11/30/17 20:30 Dose: 15 mg Loperamide HCl (Imodium) 2 mg PO Q8 PRN PRN Reason: Diarrhea Methadone HCl (Methadone) 5 mg PO Q24H [facility]; Taper Stop: 12/02/17 09:59 Last Admin: 12/01/17 10:28 Dose: 5 mg Mirtazapine (Remeron) 15 mg PO HS [facility] Last Admin: 11/30/17 21:19 Dose: 15 mg Nicotine (Nicoderm Cq) 1 patch TD DAILY [facility] Last Admin: 12/01/17 10:27 Dose: 1 patch Ondansetron HCl (Zofran Tab) 4 mg PO Q8 PRN PRN Reason: Nausea/Vomiting Pseudoephedrine HCl (Sudafed Tab) 60 mg PO QID PRN PRN Reason: Nasal/Sinus Congestion - Labs Labs: 12/01/17 07:20 12/01/17 07:20 PT 11.8 SECONDS (9.7-12.2) 11/30/17 08:23 INR 1.1 11/30/17 08:23 APTT 31 SECONDS (21-34) 11/30/17 08:23 Attending/Attestation - Attestation I have personally seen and examined this patient.: Yes I have fully participated in the care of the patient.: Yes I have reviewed all pertinent clinical information, including history, physical exam and plan: Yes Notes (Text): seen and examined this morning,NPO for sugery continue clindamycin C/S reviewed .Clindamycin is better choice for him Follow I and D finding Substance abuse-Psychiatrist on board d/w resident
[2017-12-01 00:35] VITALS: RESP 20
[2017-12-01] MEDS: Piperacill/Tazo 3.375gm in Dex 3.375 GM/50 ML BAG IVPB SCH ×4 (01:32→17:22)
--- NOTE | 2017-12-01 05:40 | OP ---
PROCEDURE DATE: 11/30/2017 PREOPERATIVE DIAGNOSIS: Back abscess multiple. POSTOPERATIVE DIAGNOSES: 1. Large mid back abscess. 2. Small right upper back abscess. PROCEDURE DONE: 1. Incision and drainage of large mid back abscess. 2. Excisional debridement of large mid back abscess, approximately 5 x 4 x 2 cm size. 3. Incision and drainage of the right upper back abscess with possible connection to the main abscess. 4. Excisional debridement of the right upper back small abscess, approximately 2 x 1 x 2 cm size. TYPE OF ANESTHESIA: Local anesthesia plus sedation. ESTIMATED BLOOD LOSS: Around 20 mL. DRAINS: None. PATHOLOGY: The pus was sent for the culture and sensitivity. Debrided tissue was also sent for pathology. COMPLICATION: None. INTRAOPERATIVE FINDINGS: The patient had large mid back abscess of approximately 5 x 4 x 2 cm size and the patient also had another 2 x 1 x 2 cm size abscess of the right upper back with possible connection between the two abscesses. DESCRIPTION OF PROCEDURE: On intraoperative steps, this is a 37-year-old male who was diagnosed with self-draining abscess of the right upper back, and patient also had abscess in the mid upper back, and the patient was consented for incision and drainage of the both abscess, and brought to the OR, placed supine on the operating table. After induction of the anesthesia, the back was prepped and draped in usual sterile fashion. The local anesthesia was injected, and after proper sedation, the transverse incision was made on the mid upper back abscess, and approximately 10 to 15 mL of pus was drained, and the right upper back abscess appeared to be connecting to the main abscess and that was also properly debrided and drained. The mid back abscess was debrided with blunt and sharp dissection using the knife and cautery, and approximately the size of the wound was 5 x 4 x 2 cm, and the right upper back wound was 2 x 1 x 2 cm size. After that, proper hemostasis was achieved. Both wound was packed with iodoform packing and dry sterile dressing was applied. The patient tolerated the procedure well. Count of the instrument and gauze was correct. There was no apparent complication. The patient was reversed from sedation. Sent to the postanesthesia care unit in stable condition. Eddie Jin MD [facility] # [id number] JACQUELINE
[2017-12-01 07:29] LABS: BASO # 0.1 K/uL (0.0-0.2); BASO % 0.8 % (0.0-2.0); EOS # 0.3 K/uL (0.0-0.7); EOS % 4.1 % (0.0-4.0); HEMOGLOBIN 13.5 g/dL (12.0-18.0); LYMPH # 2.4 K/uL (1.0-4.3); LYMPH % 32.1 % (20.0-40.0); MEAN CELL VOLUME 90.9 fL (80.0-94.0); MEAN CORPUSCULAR HEMOGLOBIN 31.9 pg (27.0-31.0); MEAN CORPUSCULAR HGB CONC 35.1 g/dL (33.0-37.0); MEAN PLATELET VOLUME 6.9 fL (7.2-11.7); MONO # 0.6 K/uL (0.0-0.8); NEUT # 4.1 K/uL (1.8-7.0); RBC 4.22 Mil/uL (4.40-5.90); RED CELL DISTRIBUTION WIDTH 13.9 % (11.5-14.5); WHITE BLOOD COUNT 7.5 K/uL (4.8-10.8)
[2017-12-01 07:47] LABS: ALB/GLOB RATIO 0.9 (1.0-2.1); ALBUMIN 3.2 g/dL (3.5-5.0); ALT/SGPT 40 U/L (21-72); AST/SGOT 28 U/L (17-59); BLOOD UREA NITROGEN 23 mg/dL (9-20); CALCIUM 8.9 mg/dl (8.6-10.4); GFR NON-AFRICAN AMERICAN > 60
[2017-12-01] MEDS ORDERED: Pneumococcal 23-Valent Vaccine IM ONE (10:00)
--- NOTE | 2017-12-01 18:38 | CP.PCM.PN ---
Subjective - Date & Time of Evaluation Date of Evaluation: 12/01/17 Time of Evaluation: 10:00 - Subjective Subjective: Pt examined at bedside, no acute events overnight. Pt reports pain is improving. Denies any complaints of chest pain, SOB, n/v/d/c. Objective - Vital Signs/Intake and Output Vital Signs (last 24 hours): Temp Pulse Resp BP Pulse Ox 98.2 F 67 20 103/57 L 98 12/01/17 15:00 12/01/17 15:00 12/01/17 15:00 12/01/17 15:00 12/01/17 15:00 Intake and Output: 12/01/17 12/01/17 06:59 18:59 Intake Total 900 Balance 900 - Medications Medications: Current Medications Al Hydrox/Mg Hydrox/Simethicone (Maalox 30 Ml) 30 ml PO TID PRN PRN Reason: Indigestion / Heartburn Clonidine HCl (Catapres) 0.1 mg PO Q8 PRN PRN Reason: COWS Score More or Equal to 5 Piperacillin Sod/Tazobactam Sod (Zosyn 3.375 Gm Iv Premix) 3.375 gm in 50 mls @ 100 mls/hr IVPB Q6H KRISTINE; Protocol Last Admin: 12/01/17 17:22 Dose: 100 mls/hr Clindamycin Phosphate 600 mg/ (Sodium Chloride) 54 mls @ 100 mls/hr IVPB Q8H KRISTINE; Protocol Last Admin: 12/01/17 18:12 Dose: 100 mls/hr Ketorolac Tromethamine (Toradol) 15 mg IVP Q6 PRN PRN Reason: Pain, moderate (4-7) Last Admin: 12/01/17 17:24 Dose: 15 mg Loperamide HCl (Imodium) 2 mg PO Q8 PRN PRN Reason: Diarrhea Methadone HCl (Methadone) 5 mg PO Q24H KRISTINE; Taper Stop: 12/02/17 09:59 Last Admin: 12/01/17 10:28 Dose: 5 mg Mirtazapine (Remeron) 15 mg PO HS KRISTINE Last Admin: 11/30/17 21:19 Dose: 15 mg Nicotine (Nicoderm Cq) 1 patch TD DAILY KRISTINE Last Admin: 12/01/17 10:27 Dose: 1 patch Ondansetron HCl (Zofran Tab) 4 mg PO Q8 PRN PRN Reason: Nausea/Vomiting Pseudoephedrine HCl (Sudafed Tab) 60 mg PO QID PRN PRN Reason: Nasal/Sinus Congestion - Labs Labs: 12/01/17 07:20 12/01/17 07:20 PT 11.8 SECONDS (9.7-12.2) 11/30/17 08:23 INR 1.1 11/30/17 08:23 APTT 31 SECONDS (21-34) 11/30/17 08:23 - Constitutional Appears: Non-toxic, No Acute Distress - Head Exam Head Exam: ATRAUMATIC, NORMAL INSPECTION, NORMOCEPHALIC - Eye Exam Eye Exam: EOMI, Normal appearance - ENT Exam ENT Exam: Mucous Membranes Moist - Neck Exam Neck Exam: Normal Inspection - Respiratory Exam Respiratory Exam: Clear to Ausculation Bilateral, NORMAL BREATHING PATTERN. absent: Rhonchi, Wheezes - Cardiovascular Exam Cardiovascular Exam: REGULAR RHYTHM, +S1, +S2. absent: Tachycardia, Murmur - GI/Abdominal Exam GI & Abdominal Exam: Soft, Normal Bowel Sounds. absent: Distended, Tenderness - Extremities Exam Extremities Exam: Normal Inspection. absent: Calf Tenderness, Pedal Edema - Back Exam Back Exam: absent: NORMAL INSPECTION (left upper back abscess dressed, sero- purulent drainage noted on dressing.) - Neurological Exam Neurological Exam: Alert, Awake - Psychiatric Exam Psychiatric exam: Normal Affect, Normal Mood - Skin Skin Exam: Dry, Normal Color, Warm Assessment and Plan - Assessment and Plan (Free Text) Assessment: 37 yo M w/ PMHx of opioid dependence and recurrent Hep C s/p tx currently admitted to psych for withdrawal, transferred for IV Abx tx of right upper back cellulitis Right upper back cellulitis s/p I & D (11/30) -MRSA+ -CT neck (11/27) reads cellulitis without any discrete drainable fluid collection -toradol 15mg -clinda 600mg q8 -zosyn 3.375mg q8 added per sx -Sx consult Dr. Jin Opioid Withdrawal -clonidine .1mg q8 prn -methadone 5mg qd -remeron 15mg po hs -zofran 4mg po q8 prn
--- NOTE | 2017-12-01 20:35 | CP.PCM.PN ---
<Joana Anthony - Last Filed: 12/01/17 20:32> Subjective - Date & Time of Evaluation Date of Evaluation: 12/01/17 Time of Evaluation: 20:32 - Subjective Subjective: Surgery Pt seen and examined. Underwent I & D yesterday and tolerated it well. Dressing saturated. Packing replaced this AM. Denies pain, nausea, diarrhea, CP, SOB. Ambulating. VOiding. Objective - Vital Signs/Intake and Output Vital Signs (last 24 hours): Temp Pulse Resp BP Pulse Ox 98.2 F 67 20 103/57 L 98 12/01/17 15:00 12/01/17 15:00 12/01/17 15:00 12/01/17 15:00 12/01/17 15:00 Intake and Output: 12/01/17 12/02/17 18:59 06:59 Intake Total 900 Balance 900 - Medications Medications: Current Medications Al Hydrox/Mg Hydrox/Simethicone (Maalox 30 Ml) 30 ml PO TID PRN PRN Reason: Indigestion / Heartburn Clonidine HCl (Catapres) 0.1 mg PO Q8 PRN PRN Reason: COWS Score More or Equal to 5 Piperacillin Sod/Tazobactam Sod (Zosyn 3.375 Gm Iv Premix) 3.375 gm in 50 mls @ 100 mls/hr IVPB Q6H KRISTINE; Protocol Last Admin: 12/01/17 17:22 Dose: 100 mls/hr Clindamycin Phosphate 600 mg/ (Sodium Chloride) 54 mls @ 100 mls/hr IVPB Q8H KRISTINE; Protocol Last Admin: 12/01/17 18:12 Dose: 100 mls/hr Ketorolac Tromethamine (Toradol) 15 mg IVP Q6 PRN PRN Reason: Pain, moderate (4-7) Last Admin: 12/01/17 17:24 Dose: 15 mg Loperamide HCl (Imodium) 2 mg PO Q8 PRN PRN Reason: Diarrhea Methadone HCl (Methadone) 5 mg PO Q24H KRISTINE; Taper Stop: 12/02/17 09:59 Last Admin: 12/01/17 10:28 Dose: 5 mg Mirtazapine (Remeron) 15 mg PO HS KRISTINE Last Admin: 11/30/17 21:19 Dose: 15 mg Nicotine (Nicoderm Cq) 1 patch TD DAILY KRISTINE Last Admin: 12/01/17 10:27 Dose: 1 patch Ondansetron HCl (Zofran Tab) 4 mg PO Q8 PRN PRN Reason: Nausea/Vomiting Pseudoephedrine HCl (Sudafed Tab) 60 mg PO QID PRN PRN Reason: Nasal/Sinus Congestion - Labs Labs: 12/01/17 07:20 12/01/17 07:20 PT 11.8 SECONDS (9.7-12.2) 11/30/17 08:23 INR 1.1 11/30/17 08:23 APTT 31 SECONDS (21-34) 11/30/17 08:23 - Constitutional Appears: No Acute Distress - Head Exam Head Exam: ATRAUMATIC, NORMAL INSPECTION, NORMOCEPHALIC - Eye Exam Eye Exam: EOMI, Normal appearance, PERRL Pupil Exam: NORMAL ACCOMODATION, PERRL - ENT Exam ENT Exam: Mucous Membranes Moist, Normal Exam - Neck Exam Neck Exam: Full ROM, Normal Inspection. absent: Lymphadenopathy - Respiratory Exam Respiratory Exam: NORMAL BREATHING PATTERN - Cardiovascular Exam Cardiovascular Exam: REGULAR RHYTHM - GI/Abdominal Exam GI & Abdominal Exam: Soft, Normal Bowel Sounds. absent: Distended, Firm, Tenderness - Extremities Exam Extremities Exam: Full ROM, Normal Capillary Refill, Normal Inspection. absent: Joint Swelling, Pedal Edema - Back Exam Back Exam: tenderness. absent: NORMAL INSPECTION Additional comments: Mid back [id number] open wound with 1cm undermining that tunnels to R back incision [id number] 1cm undermining. SS draingae. - Neurological Exam Neurological Exam: Alert, Awake, CN II-XII Intact, Normal Gait, Oriented x3 - Psychiatric Exam Psychiatric exam: Normal Affect, Normal Mood - Skin Skin Exam: Erythema, Warm. absent: Dry, Intact Assessment and Plan - Assessment and Plan (Free Text) Assessment: POD 1 s/p I &D of Back abscess -Dressing packing change PRN -OK to send home with PO ABX -F/U at Dr. Jin's office in 1-[address] Jin <Eddie Jin - Last Filed: 12/04/17 19:50> Objective - Vital Signs/Intake and Output Vital Signs (last 24 hours): Temp Pulse Resp BP Pulse Ox 97.8 F 58 L 20 106/64 98 12/02/17 07:00 12/02/17 07:00 12/02/17 07:00 12/02/17 07:00 12/02/17 07:00 - Labs Labs: 12/02/17 07:00 12/02/17 07:00 PT 11.8 SECONDS (9.7-12.2) 11/30/17 08:23 INR 1.1 11/30/17 08:23 APTT 31 SECONDS (21-34) 11/30/17 08:23 Attending/Attestation - Attestation I have personally seen and examined this patient.: Yes I have fully participated in the care of the patient.: Yes I have reviewed all pertinent clinical information, including history, physical exam and plan: Yes Notes (Text): Pt was seen and examine at bedside Agree with above note and assessment Local wound care f.u wound c/s C/w IV antibiotics Plan d.w pt in detail
[2017-12-02] MEDS: Piperacill/Tazo 3.375gm in Dex 3.375 GM/50 ML BAG IVPB SCH ×3 (00:27→11:18)
[2017-12-02 01:11] VITALS: TEMP 97.8
[2017-12-02 04:36] VITALS: O2SAT 98
[2017-12-02 07:20] LABS: BASO % 0.6 % (0.0-2.0); EOS # 0.4 K/uL (0.0-0.7); EOS % 4.7 % (0.0-4.0); HEMOGLOBIN 13.8 g/dL (12.0-18.0); LYMPH # 2.6 K/uL (1.0-4.3); LYMPH % 34.2 % (20.0-40.0); MEAN CELL VOLUME 92.1 fL (80.0-94.0); MEAN CORPUSCULAR HEMOGLOBIN 31.3 pg (27.0-31.0); MEAN PLATELET VOLUME 7.1 fL (7.2-11.7); MONO # 0.7 K/uL (0.0-0.8); MONO % 8.5 % (0.0-10.0); RBC 4.4 Mil/uL (4.40-5.90); RED CELL DISTRIBUTION WIDTH 13.5 % (11.5-14.5); WHITE BLOOD COUNT 7.7 K/uL (4.8-10.8)
[2017-12-02 07:40] LABS: BLOOD UREA NITROGEN 26 mg/dL (9-20); GFR NON-AFRICAN AMERICAN > 60
[2017-12-02 07:41] VITALS: BP 106/64; PULSE 58
[2017-12-02 07:41] LABS: ALB/GLOB RATIO 0.9 (1.0-2.1); ALBUMIN 3.2 g/dL (3.5-5.0); ALT/SGPT 42 U/L (21-72); AST/SGOT 33 U/L (17-59); CALCIUM 8.9 mg/dl (8.6-10.4)
--- NOTE | 2017-12-02 09:05 | CP.PCM.PN ---
<Suha Velasquez - Last Filed: 12/02/17 09:02> Subjective - Date & Time of Evaluation Date of Evaluation: 12/02/17 Time of Evaluation: 09:02 - Subjective Subjective: General surgery progress note for Dr. Rice-Suha Velasquez, PGY-2 Pt S & E at bedside at 0630 Pt reports pain well controlled. Denies N & V, F & C. Reports that he has people at home that can help with his dressing changes. Objective - Vital Signs/Intake and Output Vital Signs (last 24 hours): Temp Pulse Resp BP Pulse Ox 97.8 F 58 L 20 106/64 98 12/02/17 07:00 12/02/17 07:00 12/02/17 07:00 12/02/17 07:00 12/02/17 07:00 Intake and Output: 12/02/17 12/02/17 06:59 18:59 Intake Total 1590 Balance 1590 - Medications Medications: Current Medications Al Hydrox/Mg Hydrox/Simethicone (Maalox 30 Ml) 30 ml PO TID PRN PRN Reason: Indigestion / Heartburn Clonidine HCl (Catapres) 0.1 mg PO Q8 PRN PRN Reason: COWS Score More or Equal to 5 Piperacillin Sod/Tazobactam Sod (Zosyn 3.375 Gm Iv Premix) 3.375 gm in 50 mls @ 100 mls/hr IVPB Q6H KRISTINE; Protocol Last Admin: 12/02/17 06:13 Dose: 100 mls/hr Clindamycin Phosphate 600 mg/ (Sodium Chloride) 54 mls @ 100 mls/hr IVPB Q8H KRISTINE; Protocol Last Admin: 12/02/17 03:23 Dose: 100 mls/hr Ketorolac Tromethamine (Toradol) 15 mg IVP Q6 PRN PRN Reason: Pain, moderate (4-7) Last Admin: 12/02/17 06:27 Dose: 15 mg Loperamide HCl (Imodium) 2 mg PO Q8 PRN PRN Reason: Diarrhea Methadone HCl (Methadone) 5 mg PO Q24H KRISTINE; Taper Stop: 12/02/17 09:59 Last Admin: 12/01/17 10:28 Dose: 5 mg Mirtazapine (Remeron) 15 mg PO HS KRISTINE Last Admin: 12/01/17 21:00 Dose: 15 mg Nicotine (Nicoderm Cq) 1 patch TD DAILY [facility] Last Admin: 12/01/17 10:27 Dose: 1 patch Ondansetron HCl (Zofran Tab) 4 mg PO Q8 PRN PRN Reason: Nausea/Vomiting Pseudoephedrine HCl (Sudafed Tab) 60 mg PO QID PRN PRN Reason: Nasal/Sinus Congestion - Labs Labs: 12/02/17 07:00 12/02/17 07:00 PT 11.8 SECONDS (9.7-12.2) 11/30/17 08:23 INR 1.1 11/30/17 08:23 APTT 31 SECONDS (21-34) 11/30/17 08:23 - Constitutional Appears: Non-toxic, No Acute Distress - Head Exam Head Exam: ATRAUMATIC, NORMAL INSPECTION, NORMOCEPHALIC - Eye Exam Eye Exam: EOMI, Normal appearance - ENT Exam ENT Exam: Mucous Membranes Moist, Normal Exam - Neck Exam Neck Exam: Full ROM, Normal Inspection - Respiratory Exam Respiratory Exam: NORMAL BREATHING PATTERN - Cardiovascular Exam Cardiovascular Exam: REGULAR RHYTHM, +S1, +S2 - GI/Abdominal Exam GI & Abdominal Exam: Soft. absent: Tenderness - Extremities Exam Extremities Exam: Normal Inspection - Back Exam Back Exam: absent: NORMAL INSPECTION (Right back over scapula with 2 incisions with packing, erythema resolved, no induration) - Neurological Exam Neurological Exam: Alert, Awake, CN II-XII Intact, Oriented x3 - Psychiatric Exam Psychiatric exam: Normal Affect, Normal Mood - Skin Skin Exam: Dry, Normal Color, Warm Assessment and Plan - Assessment and Plan (Free Text) Assessment: 37M POD#2 s/p I & D of Right back abscess Plan: Cleared for d/c from surgical standpoint Dressing and packing changed today Keep dressing in place for 2 days, then ok to remove dressing and packing. Then just place dressing without packing over incisions. LAURA w/Dr. Jin in office in 1-2 weeks. Will HELIO Velasquez, PGY-2 <Eddie Jin - Last Filed: 12/04/17 19:49> Objective - Vital Signs/Intake and Output Vital Signs (last 24 hours): Temp Pulse Resp BP Pulse Ox 97.8 F 58 L 20 106/64 98 12/02/17 07:00 12/02/17 07:00 12/02/17 07:00 12/02/17 07:00 12/02/17 07:00 - Labs Labs: 12/02/17 07:00 12/02/17 07:00 PT 11.8 SECONDS (9.7-12.2) 11/30/17 08:23 INR 1.1 11/30/17 08:23 APTT 31 SECONDS (21-34) 11/30/17 08:23 Attending/Attestation - Attestation I have personally seen and examined this patient.: Yes I have fully participated in the care of the patient.: Yes I have reviewed all pertinent clinical information, including history, physical exam and plan: Yes Notes (Text): Pt was seen and examine at bedside Agree with above note and assessment Pt is improving clinically MRSA in wound ID onboard C/w IV antibiotics DC Plan Plan d.w pt in detail Risk and benefit explained in detail
--- NOTE | 2017-12-02 23:45 | CP.PCM.DIS ---
Provider - Provider Date of Admission: 11/26/17 16:28 Attending physician: Clair Esquivel MD Consults: Dr. Jin Time Spent in preparation of Discharge (in minutes): 35 Diagnosis - Discharge Diagnosis (1) Abscess Status: Acute Hospital Course - Lab Results Lab Results: Micro Results 11/30/17 17:50 Abscess - Back Gram Stain - Final 11/30/17 17:50 Abscess - Back Wound Culture - Final Methicillin Resistant S Aureus 11/27/17 16:30 Abscess - Abscess Gram Stain - Final 11/27/17 16:30 Abscess - Abscess Wound Culture - Final Methicillin Resistant S Aureus Most Recent Lab Values WBC 7.7 K/uL (4.8-10.8) 12/02/17 07:00 RBC 4.40 Mil/uL (4.40-5.90) 12/02/17 07:00 Hgb 13.8 g/dL (12.0-18.0) 12/02/17 07:00 Hct 40.5 % (35.0-51.0) 12/02/17 07:00 MCV 92.1 fL (80.0-94.0) 12/02/17 07:00 MCH 31.3 pg (27.0-31.0) H 12/02/17 07:00 MCHC 34.0 g/dL (33.0-37.0) 12/02/17 07:00 RDW 13.5 % (11.5-14.5) 12/02/17 07:00 Plt Count 266 K/uL (130-400) 12/02/17 07:00 MPV 7.1 fL (7.2-11.7) L 12/02/17 07:00 Neut % (Auto) 52.0 % (50.0-75.0) 12/02/17 07:00 Lymph % (Auto) 34.2 % (20.0-40.0) 12/02/17 07:00 [place] % (Auto) 8.5 % (0.0-10.0) 12/02/17 07:00 Eos % (Auto) 4.7 % (0.0-4.0) H 12/02/17 07:00 Baso % (Auto) 0.6 % (0.0-2.0) 12/02/17 07:00 Neut # (Auto) 4.0 K/uL (1.8-7.0) 12/02/17 07:00 Lymph # (Auto) 2.6 K/uL (1.0-4.3) 12/02/17 07:00 [place] # (Auto) 0.7 K/uL (0.0-0.8) 12/02/17 07:00 Eos # (Auto) 0.4 K/uL (0.0-0.7) 12/02/17 07:00 Baso # (Auto) 0.0 K/uL (0.0-0.2) 12/02/17 07:00 Neutrophils % (Manual) 87 % (50-75) H 11/26/17 14:55 Band Neutrophils % 2 % (0-2) 11/26/17 14:55 Lymphocytes % (Manual) 6 % (20-40) L 11/26/17 14:55 Monocytes % (Manual) 5 % (0-10) 11/26/17 14:55 Platelet Estimate Normal (NORMAL) 11/26/17 14:55 Anisocytosis (manual) Slight 11/26/17 14:55 PT 11.8 SECONDS (9.7-12.2) 11/30/17 08:23 INR 1.1 11/30/17 08:23 APTT 31 SECONDS (21-34) 11/30/17 08:23 Sodium 141 mmol/L (132-148) 12/02/17 07:00 Potassium 4.3 mmol/L (3.6-5.2) 12/02/17 07:00 Chloride 105 mmol/L (98-107) 12/02/17 07:00 Carbon Dioxide 27 mmol/L (22-30) 12/02/17 07:00 Anion Gap 13 (10-20) 12/02/17 07:00 BUN 26 mg/dL (9-20) H 12/02/17 07:00 Creatinine 0.9 mg/dL (0.8-1.5) 12/02/17 07:00 Est GFR ( Amer) > 60 12/02/17 07:00 Est GFR (Non-Af Amer) > 60 12/02/17 07:00 Random Glucose 99 mg/dL (75-110) 12/02/17 07:00 Hemoglobin A1c 5.3 % (4.2-6.5) 11/30/17 08:23 Calcium 8.9 mg/dl (8.6-10.4) 12/02/17 07:00 Phosphorus 4.1 mg/dL (2.5-4.5) 12/02/17 07:00 Magnesium 2.2 mg/dL (1.6-2.3) 12/02/17 07:00 Total Bilirubin 0.3 mg/dL (0.2-1.3) 12/02/17 07:00 AST 33 U/L (17-59) 12/02/17 07:00 ALT 42 U/L (21-72) 12/02/17 07:00 Alkaline Phosphatase 55 U/L (38-126) 12/02/17 07:00 Total Protein 6.7 g/dL (6.3-8.3) 12/02/17 07:00 Albumin 3.2 g/dL (3.5-5.0) L 12/02/17 07:00 Globulin 3.5 gm/dL (2.2-3.9) 12/02/17 07:00 Albumin/Globulin Ratio 0.9 (1.0-2.1) L 12/02/17 07:00 Urine Color Rosemary (YELLOW) 11/26/17 15:20 Urine Clarity Clear (Clear) 11/26/17 15:20 Urine pH 6.0 (5.0-8.0) 11/26/17 15:20 Ur Specific [place] 1.031 (1.003-1.030) H 11/26/17 15:20 Urine Protein 2+ mg/dL (NEGATIVE) H 11/26/17 15:20 Urine Glucose (UA) Normal mg/dL (Normal) 11/26/17 15:20 Urine Ketones Negative mg/dL (NEGATIVE) 11/26/17 15:20 Urine Blood Negative (NEGATIVE) 11/26/17 15:20 Urine Nitrate Negative (NEGATIVE) 11/26/17 15:20 Urine Bilirubin Negative (NEGATIVE) 11/26/17 15:20 Urine Urobilinogen 4.0 mg/dL (0.2-1.0) 11/26/17 15:20 Ur Leukocyte Esterase Neg Yg/uL (Negative) 11/26/17 15:20 Urine WBC (Auto) 9 /hpf (0-5) H 11/26/17 15:20 Urine RBC (Auto) 1 /hpf (0-3) 11/26/17 15:20 Ur Squamous Epith Cells < 1 /hpf (0-5) 11/26/17 15:20 Urine Bacteria Rare (<OCC) 11/26/17 15:20 Hyaline Casts 6-10 /lpf (0-2) H 11/26/17 15:20 Urine Opiates Screen Positive (NEGATIVE) H 11/26/17 15:20 Urine Methadone Screen Negative (NEGATIVE) 11/26/17 15:20 Ur Barbiturates Screen Negative (NEGATIVE) 11/26/17 15:20 Ur Phencyclidine Scrn Negative (NEGATIVE) 11/26/17 15:20 Ur Amphetamines Screen Negative (NEGATIVE) 11/26/17 15:20 U Benzodiazepines Scrn Negative (NEGATIVE) 11/26/17 15:20 U Oth Cocaine Metabols Positive (NEGATIVE) H 11/26/17 15:20 U Cannabinoids Screen Negative (NEGATIVE) 11/26/17 15:20 Alcohol, Quantitative < 10 mg/dl (0-10) 11/26/17 14:55 - Hospital Course Hospital Course: On admission: Mr. Torres is a 37 year old male PMH polysubstance abuse at [facility] for depression and detox consulted for growing abscess on his R shoulder. Patient reports that the achey pain started about a week ago, but noticed the blemish when it was pimple like about two weeks ago. The pain radiates from his back to up his neck and just past the tip of his shoulder. Patient cannot put any weight on it, ie sleeping on his side; even the gown touching it causes him pain. At its worst, the pain was 9/10 but has reduced to a 7/10 with Motrin. Despite getting Keflex in the ED, the redness has expanded beyond marked borders and the pain has not subsided. The patient readily admits drug use. He usually uses 10 bags of heroin each days. His last use was 4 bags of heroin immediately prior to admission. Admits fatigue and weakness, difficulty taking deep inspiration characterized as chest tightness, chills; all of which he has experienced as a result during prior detox attempts. Currently denies suicidal ideation, chest pain, fever, changes in vision or hearing, headache, cough, nausea, vomiting, difficulty voiding. Hospital Course: Patient was initially admitted for opioid detox and medicine was consulted for upper back abscess. A CT of the neck was obtained. 11/27/17 CT neck: 1. cellulitis in the posterior lower neck without evidence for drainable fluid collection. 2. Moderate circumferential mural thickening in the left maxillary sinus which may represent acute and/or chronic sinusitis. 3. Left cervical lymphadenopathy and bilateral supraclavicular lymphadenopathy, nonspecific and may be reactive, infectious or inflammatory in etiology. (see full report)Abscess was cultures and grew MRSA. Patient was treated with IV clindamycin and zosyn. Once the abscess became more fluctuant, patient underwent an I&D with Dr. Jin on 11/30/17. Patient tolerated procedure well. Discharge instructions: Patient is stable for discharge as per Dr. Esquivel. Patient is to follow up with Dr. Jin in the [facility] surgery clinic within 1-2 weeks of discharge. Please call [phone] to make an appointment. Wound care: Keep dressing in place for 2 days, then ok to remove dressing and packing. Then place dressing without packing over incisions. Patient is sent home with the following medications: Clindamycin 600mg every 8 hours for 14 days If symptoms worsen please return to the emergency room. Discharge Exam - Head Exam Head Exam: ATRAUMATIC, NORMAL INSPECTION, NORMOCEPHALIC - Eye Exam Eye Exam: EOMI - ENT Exam ENT Exam: Mucous Membranes Moist - Respiratory Exam Respiratory Exam: Clear to PA & Lateral, NORMAL BREATHING PATTERN. absent: Rales, Rhonchi, Wheezes - Cardiovascular Exam Cardiovascular Exam: REGULAR RHYTHM. absent: +S1, +S2 - GI/Abdominal Exam GI & Abdominal Exam: Normal Bowel Sounds, Soft. absent: Tenderness - Extremities Exam Extremities exam: full ROM - Neurological Exam Neurological exam: Alert, CN II-XII Intact, Oriented x3 - Psychiatric Exam Psychiatric exam: Normal Affect, Normal Mood - Skin Skin Exam: Dry, Normal Color, Warm Additional comments: Packing and dressing to upper back I&D site. Discharge Plan - Discharge Medications Prescriptions: Clindamycin [Cleocin] 600 mg PO Q8H 14 Days #84 cap Mirtazapine [Remeron] 15 mg PO HS #14 tab - Follow Up Plan Condition: GOOD Disposition: HOME/ ROUTINE Instructions: Smoking: Not Just Harmful to Your Lungs and Heart, Abscess Incision and Drainage, Clindamycin (Systemic), Quitting Smoking Additional Instructions: Patient is stable for discharge as per Dr. Esquivel. Patient is to follow up with Dr. Jin in the [facility] surgery clinic within 1-2 weeks of discharge. Please call [phone] to make an appointment. Wound care: Keep dressing in place for 2 days, then ok to remove dressing and packing. Then place dressing without packing over incisions. Patient is sent home with the following medications: Clindamycin 600mg every 8 hours for 14 days If symptoms worsen please return to the emergency room. Referrals: [facility] at [facility] [Outside] Eddie Jin MD [Staff Provider] -
== END 2017-12-02 12:23 | disposition home or self-care (01) | DRG 744 ==
LOC: C.ER 13:53 → C.5E 16:28 → C.5S 11-28 17:13 → C.5E 11-29 01:07 → C.5S 11-29 01:07
PROVIDERS: ADMIT Internal Medicine; ATTEND Internal Medicine
PROC: HZ52ZZZ Individual Psychotherapy for Substance Abuse Treatment, Cognitive-Behavioral (ICD-10-PCS; principal; 2017-11-26)
PROC: HZ2ZZZZ Detoxification Services for Substance Abuse Treatment (ICD-10-PCS; 2017-11-26)
PROC: HZ59ZZZ Individual Psychotherapy for Substance Abuse Treatment, Supportive (ICD-10-PCS; 2017-11-26)
PROC: HZ56ZZZ Individual Psychotherapy for Substance Abuse Treatment, Psychoeducation (ICD-10-PCS; 2017-11-26)
PROC: HZ42ZZZ Group Counseling for Substance Abuse Treatment, Cognitive-Behavioral (ICD-10-PCS; 2017-11-26)
PROC: HZ46ZZZ Group Counseling for Substance Abuse Treatment, Psychoeducation (ICD-10-PCS; 2017-11-26)
PROC: GZHZZZZ Group Psychotherapy (ICD-10-PCS; 2017-11-26)
PROC: GZ58ZZZ Individual Psychotherapy, Cognitive-Behavioral (ICD-10-PCS; 2017-11-26)
PROC: GZ56ZZZ Individual Psychotherapy, Supportive (ICD-10-PCS; 2017-11-26)
PROC: 0HB6XZZ Excision of Back Skin, External Approach (ICD-10-PCS; 2017-11-30)
PROC: 0HB6XZZ Excision of Back Skin, External Approach (ICD-10-PCS; 2017-11-30)
PROC: 0H96XZX Drainage of Back Skin, External Approach, Diagnostic (ICD-10-PCS; 2017-11-30)
PROC: 0H96XZX Drainage of Back Skin, External Approach, Diagnostic (ICD-10-PCS; 2017-11-30)
DX: F11.23 Opioid dependence with withdrawal (principal); F33.2 Major depressive disorder, recurrent severe without psychotic features; L03.113 Cellulitis of right upper limb; B19.20 Unspecified viral hepatitis C without hepatic coma; L02.212 Cutaneous abscess of back [any part, except buttock and flank]; F14.20 Cocaine dependence, uncomplicated; F41.9 Anxiety disorder, unspecified; F17.210 Nicotine dependence, cigarettes, uncomplicated; F12.20 Cannabis dependence, uncomplicated; R45.851 Suicidal ideations; Z59.0 Homelessness; Z80.52 Family history of malignant neoplasm of bladder

== ENCOUNTER 2018-01-09 12:20 | Inpatient (IN) | payer MEDICAID, OTHER ==
--- NOTE | 2018-01-09 14:22 | C.PDOC ---
History Of Present Illness 37 y/o male, w/PMhx of substance abuse and depression, presents to the ER complaining of feeling depressed. Patient is also requesting detox from heroin, his last use was last night. Patient denies having suicidal ideation, homicidal ideation, and active physical complaints. Time Seen by Provider: 01/09/18 14:01 Chief Complaint (Nursing): Substance Abuse History Per: Patient History/Exam Limitations: no limitations Onset/Duration Of Symptoms: Days Current Symptoms Are (Timing): Still Present Severity: Moderate Past Medical History Reviewed: Historical Data, Nursing Documentation, Vital Signs Vital Signs: Last Vital Signs Temp 98.1 F 01/09/18 12:41 Pulse 53 L 01/09/18 12:41 Resp 16 01/09/18 12:41 BP 143/78 01/09/18 12:41 Pulse Ox 100 01/09/18 12:41 - Medical History PMH: Anxiety, Depression, Hepatitis (Hep "C") Denies: Atrial Fibrillation, Cardia Arrhythmia, CHF, Diabetes, Emphysema, HIV (HIV negative), HTN, Hypercholesterolemia, Chronic Kidney Disease, Seizures, Sexually Transmitted Disease Surgical History: No Surg Hx - [facility] Procedures DETOXIFICATION SERVICES FOR SUBSTANCE ABUSE TREATMENT (11/26/17) DRAINAGE OF BACK SKIN, EXTERNAL APPROACH, DIAGNOSTIC (11/26/17) EXCISION OF BACK SKIN, EXTERNAL APPROACH (11/26/17) GROUP RETANNER FOR SUBSTANCE ABUSE TREATMENT, PSYCHOEDUCATION (11/26/17) GROUP RETANNER FOR SUBSTANCE ABUSE, COGNITIVE BEHAVIORAL (11/26/17) GROUP PSYCHOTHERAPY (11/26/17) INDIV PSYCHOTHERAPY FOR SUBSTANCE ABUSE TREATMENT, SUPPORT (11/26/17) INDIV PSYCHOTHERAPY FOR SUBSTANCE ABUSE, COGNITIV BEHAVIORAL (11/26/17) INDIV PSYCHOTHERAPY FOR SUBSTANCE ABUSE, PSYCHOEDUCATION (11/26/17) INDIVIDUAL PSYCHOTHERAPY, COGNITIVE-BEHAVIORAL (11/26/17) INDIVIDUAL PSYCHOTHERAPY, SUPPORTIVE (11/26/17) MEDS MGMT FOR SUBSTANCE ABUSE TREATMENT, METHADONE MAINT (06/26/15) Family History: States: No Known Family Hx - Social History Hx Alcohol Use: No Hx Substance Use: Yes (LAST USE LAST NIGHT) - Immunization History Hx Tetanus Toxoid Vaccination: No Hx Influenza Vaccination: No Hx Pneumococcal Vaccination: No Review Of Systems Except As Marked, All Systems Reviewed And Found Negative. Constitutional: Negative for: Fever, Chills Psych: Positive for: Depression. Negative for: Suicidal ideation Physical Exam - Physical Exam Appears: No Acute Distress Skin: Normal Color, Warm, Dry, Other (healing scar to right upper back) Head: Atraumatic, Normacephalic Eye(s): bilateral: Normal Inspection Nose: Normal Oral Mucosa: Moist Neck: Supple Chest: Symmetrical Cardiovascular: Rhythm Regular Respiratory: Normal Breath Sounds, No Rales, No Rhonchi, No Wheezing Gastrointestinal/Abdominal: Normal Exam, Soft, No Tenderness, No Guarding, No Rebound Neurological/Psych: Oriented x3, Normal Speech ED Course And Treatment - Laboratory Results Result Diagrams: 01/09/18 15:12 01/09/18 15:12 O2 Sat by Pulse Oximetry: 100 (RA) Pulse Ox Interpretation: Normal Medical Decision Making Medical Decision Making: Plan: --Labs --UA pt medically clear. accepted. Disposition - Disposition Disposition: HOSPITALIZED Disposition Time: 15:58 Condition: STABLE - Clinical Impression Clinical Impression: Major depression - Scribe Statement The provider has reviewed the documentation as recorded by the Anumibe Piero Marcelo Provider Attestation: All medical record entries made by the Scribe were at my direction and personally dictated by me. I have reviewed the chart and agree that the record accurately reflects my personal performance of the history, physical exam, medical decision making, and the department course for this patient. I have also personally directed, reviewed, and agree with the discharge instructions and disposition. Decision To Admit - Pt Status Changed To: Hospital Disposition Of: Inpatient - Admit Certification Admit to Inpatient:: After my assessment, the patient will require hospitalization for at least two midnights. This is because of the severity of symptoms shown, intensity of services needed, and/or the medical risk in this patient being treated as an outpatient. - InPatient: Physician Admission Certification: I certify that this patient requires 2 or more midnights of care for the following reason:: depressed - . Bed Request Type: Psychiatry Admitting Physician: Kenan Soler Patient Diagnosis: Major depression
[2018-01-09 15:11] LABS: URINE BILIRUBIN NEGATIVE (NEGATIVE); URINE BLOOD NEGATIVE (NEGATIVE); URINE CLARITY Clear (Clear); URINE COLOR Yellow (YELLOW); URINE GLUCOSE (UA) NORMAL (Normal); URINE LEUKOCYTE ESTERASE NEG Leu/uL (Negative); URINE PROTEIN NEGATIVE (NEGATIVE); URINE UROBILINOGEN NORMAL mg/dL (0.2-1.0)
[2018-01-09 15:17] LABS: BASO % 0.5 % (0.0-2.0); EOS # 0.2 K/uL (0.0-0.7); EOS % 1.8 % (0.0-4.0); HEMOGLOBIN 14.6 g/dL (12.0-18.0); LYMPH # 2.2 K/uL (1.0-4.3); LYMPH % 24.4 % (20.0-40.0); MEAN CELL VOLUME 91.5 fL (80.0-94.0); MEAN CORPUSCULAR HEMOGLOBIN 31.1 pg (27.0-31.0); MEAN PLATELET VOLUME 6.8 fL (7.2-11.7); MONO # 0.6 K/uL (0.0-0.8); MONO % 6.5 % (0.0-10.0); NEUT # 5.9 K/uL (1.8-7.0); NEUT % 66.8 % (50.0-75.0); NRBC % 0.1 % (0.0-2.0); RBC 4.68 Mil/uL (4.40-5.90); RED CELL DISTRIBUTION WIDTH 13.2 % (11.5-14.5); WHITE BLOOD COUNT 8.9 K/uL (4.8-10.8)
[2018-01-09 15:32] LABS: BARBITURATES, UR NEGATIVE (NEGATIVE); BENZODIAZEPINES, UR NEGATIVE (NEGATIVE); PHENCYCLIDINE, UR NEGATIVE (NEGATIVE)
[2018-01-09 15:34] LABS: ALT/SGPT 50 U/L (21-72); AST/SGOT 44 U/L (17-59); BLOOD UREA NITROGEN 20 mg/dL (9-20); CALCIUM 9.3 mg/dl (8.6-10.4); GFR NON-AFRICAN AMERICAN > 60
[2018-01-09 15:35] LABS: OPIATES, UR POSITIVE (NEGATIVE)
[2018-01-09 15:35] LABS: ACETAMINOPHEN < 10.0 ug/mL (10.0-30.0); SALICYLATE < 1.0 mg/dL 1
--- NOTE | 2018-01-09 20:50 | PCM.BM ---
<Bob Cadet - Last Filed: 01/09/18 20:50> Treatment Plan Problems - Problems identified on initial assessmt Suicidal Ideation Date Initiated: 01/09/18 Time Initiated: 16:10 Assessment reference: NA Status: Monitor Treatment assets and liabiliti Patient Assests: ADL independent, good support system, negotiates basic needs Patient Liabilities: substance abuse (Opiates, cocaine) - Milieu Protocol Maintain good personal hygiene: daily Encourage regular showers, daily Remind patient to perform daily oral care, every shift Assist patient to perform ADL's Conduct patient checks and document Observation sheet: Q15 minutes Maintain personal safety: every shift Educate patient to report safety concerns to staff, every shift Monitor environment for contraband/sharps Medication safety: Monitor for expected outcome, potential side effects: every shift, Assess barriers to learning: every shift, Assess readiness for medication education: every shift <Kenan Soler - Last Filed: 01/11/18 11:03> - Diagnosis (1) Major depression Status: Acute Interventions: 01/11/18 11:03 * Assess/adjust medications daily and /or as needed * See patient on an individual basis 7x/week to assess symptoms of depression * Monitor for side effects & effectiveness of medications * (2) Drug abuse Status: Acute Interventions: 01/11/18 11:04 * Assess 7x/week regarding severity of withdrawal * Educate regarding risks, benefits, side effects and alternatives of medication s * Use Motivational Interviewing for abstinence * Use CBT for relapse prevention * Medication management for withdrawal symptoms * Encourage medication assisted treatment * <Ignacia Winters - Last Filed: 01/11/18 11:36> Family Contact Family involvement: Famliy/SO not involved - Goals for Treatment Patient goals for treatment: "I want to go to rehab." Discharge/Continuing Care - Education Needs Education Needs: Patient Medication, Patient Coping Skills, Patient Placement options, Patient Community resources - Discharge Discharge Criteria: Tolerates medication w/o severe side effects, No longer exhibiting s/s of withdrawal Discharge to:: Substance Abuse Rehab - Treatment Team Participation Discussed with Family/SO: No Was Patient/Family/SO present at Treatment Team Meeting: Yes
[2018-01-10] MEDS ORDERED: Aluminum Hydroxide/Magnesium Hydroxide Susp (30 mL) PO PRN (09:59)
--- NOTE | 2018-01-10 23:02 | PCM.PSYCH ---
Initial Psychiatric Evaluation - Initial Psychiatric Evaluation Type of Admission: Voluntary Legal Status: Capacity Chief Complaint (in patient's own words): I was feeling depressed.' History of Present Illness and Precipitating Events: Pt is a 37 year old male who is and has one child that is 5 years old. 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 Pt also does not have a home and has been staying with friends for 1 year. Pt came to [facility] complaining of depression and suicidal ideation with a plan to overdose. Patient reports that he has been hospitalized for the psychiatric condition more than 3 times in the past and the last time was 1 month ago at [facility]. During these hospital stays he has been on a methadone taper but has not used methadone as maintenance therapy. Patient reports that he has been feeling suicidal and depressed for the last couple days because of his active drug addiction and on and off homelessness along with having trouble to function with society. Pt uses 20 bags of heroin a day by injection and has been using for 2 years. His last use was the night before admission. Pt also uses 20 bags of cocaine by injection for the past 2 years. He smokes 1 pack of cigarettes a day but denies excessive use of alcohol. He denies having been to a detoxification or rehabilitation center before. Pt was diagnosed with major depressive d/o 4 years ago. He states that his appetite and sleep are intact but he has overall low energy. He is feeling guilty about his daughter and having trouble concentrating in day to day activities. Patient reports depressed mood, feelings of hopeles sness and helplessness, poor sleep and poor appetite. He denies any homicidal ideation. He denies any manic symptoms. He denies any auditory or visual hallucinations or any psychotic symptoms. Patient reports withdrawal symptoms including abdominal cramps, anxiety, headaches and sweating. Past medical history: Hepatitis C Allergies: Banana, nuts Surgical history: Denies Legal history: Denies Psychiatric history: Major depressive d/o Family psychiatric history: Denies Current Medications: Active Medications Generic Name Dose Route Start Last Admin Trade Name Freq PRN Reason Stop Dose Admin Acetaminophen 650 mg 01/10/18 09:59 Tylenol 325mg Tab PO Q4H PRN Fever greater than 101 F Al Hydrox/Mg Hydrox/Simethicone 30 ml 01/10/18 09:59 Maalox 30 Ml PO TID PRN Indigestion / Heartburn Clonidine HCl 0.1 mg 01/10/18 09:59 Catapres PO Q8 PRN COWS Score More or Equal to 5 Gabapentin 300 mg 01/10/18 10:00 01/10/18 17:17 Neurontin PO 300 mg TID KRISTINE Administration Hydroxyzine HCl 25 mg 01/09/18 20:16 01/10/18 17:17 Atarax PO 25 mg Q6H PRN Administration Anxiety Influenza Virus Vaccine 60 mcg 01/12/18 10:00 Fluzone Quad 9366-1236 IM 01/12/18 10:01 .ONCE ONE Loperamide HCl 2 mg 01/10/18 09:59 Imodium PO Q8 PRN Diarrhea Methadone HCl 25 mg 01/11/18 10:00 Methadone PO 01/16/18 09:59 DAILY KRISTINE Taper Mirtazapine 15 mg 01/09/18 22:00 01/09/18 22:11 Remeron PO Not Given HS KRISTINE Nicotine 1 patch 01/10/18 10:00 01/10/18 10:48 Nicoderm Cq TD 1 patch DAILY KRISTINE Administration Ondansetron HCl 4 mg 01/10/18 09:59 Zofran Tab PO Q8 PRN Nausea/Vomiting Pneumococcal Polyvalent Vaccine 0.5 ml 01/12/18 10:00 Pneumovax 23 Vaccine IM 01/12/18 10:01 .ONCE ONE Pseudoephedrine HCl 60 mg 01/10/18 09:59 Sudafed Tab PO QID PRN Nasal/Sinus Congestion Past Psychiatric History - Past Psychiatric History Previous Treatment History: Inpatient Pertinent Medical Hx (Current Medical&Sleep Prob, Allergies): Allergies Allergy/AdvReac Type Severity Reaction Status Date / Time banana Allergy SWELLING Verified 01/09/18 12:41 nut - unspecified Allergy Verified 01/09/18 12:41 Clindamycin [Cleocin] 600 mg PO Q8H 14 Days #84 cap 12/02/17 Mirtazapine [Remeron] 15 mg PO HS #14 tab 12/02/17 Review of Systems - Review of Systems All systems: reviewed and no additional remarkable complaints except - Psychiatric Psychiatric: Anxiety, Irritability, Suicidal Ideation Mental Status Examination - Personal Presentation Personal Presentation: Looks stated age - Affect Affect: Constricted, Depressed - Motor Activity Motor Activity: Calm - Reliability in Providing Information Reliability in Providing Information: Fair - Speech Speech: Organized - Mood Mood: Depressed, Anxious - Formal Thought Process Formal Thought Process: No Impairment - Obsessions/Compulsions Obsessions: No Compulsions: No - Cognitive Functions Orientation: Person, Place, Situation, Time Sensorium: Alert Attention/Concentration: Attentive Abstract Thinking: Wagoner Estimate of Intelligence: Below average Judgement: Imparied, as evidence by: Poor judgement, Imparied, as evidence by: Lack of insight into illness - Risk Risk: Suicidal, Withdrawal, Diminished functioning - Limitations Limitations: Living alone DSM 5 DX - DSM 5 DSM 5 Diagnosis: Major depressive disorder recurrent severe without psychotic features Opioid use disorder severe Opioid withdrawal Cocaine use disorder severe - Recommended/Plan of Treatment Treatment Recommendations and Plan of Treatment: Major depressive disorder recurrent severe without psychotic features CBT Psychoeducation Supportive therapy, group therapy, individual therapy Trazodone 100 mg by mouth daily at bedtime Hydroxyzine 25 mg by mouth every 6 hours when necessary Gabapentin 100 mg po TID Remeron 15 mg PO QHS Opioid use disorder severe CBT Psychoeducation Supportive therapy, individual therapy Use SD for abstinence Opioid withdrawal CBT Psychoeducation Supportive therapy, individual therapy Clonidine when necessary Methadone taper Cocaine use disorder severe CBT Psychoeducation Supportive therapy, individual therapy Use SD for abstinence - Smoking Cessation Smoking Cessation Initiated: Yes
--- NOTE | 2018-01-11 14:15 | PCM.PYCHPN ---
Psychiatric Progress Note - Psychiatric Progress Note Patient seen today, length of contact: 15 min Patient Chief Complaint: I was feeling depressed.' Problems Identified/Issues Discussed: Patient seen and evaluated, chart reviewed and discussed with the nurse. Pt reports depressed mood, and reports feelings of hopelessness and helplessness. He remained isolated and withdrawn, and confined to his room. Patient reports of withdrawal symptoms including abdominal cramps, anxiety, headaches and sweating. He denies any auditory hallucinations, visual hallucinations, or any paranoia. Patient is compliant with medications and denies any side effects. Symptoms are improving but pt needs more time to stabilize. Support and psychoeducation given. Medication Change: Yes Medical Record Reviewed: Yes Mental Status Examination - Cognitive Function Orientation: Person, Place, Situation, Time Memory: Intact Attention: WNL Concentration: Poor Association: WNL Fund of Knowledge: Poor - Mood Mood: Depressed, Anxious - Affect Affect: Constricted, Depressed - Speech Speech: Soft - Formal Thought Process Formal Thought Process: No Impairment - Suicidal Ideation Suicidal Ideation: No - Homicidal Ideation Homicidal Ideation: No Goal/Treatment Plan - Goal/Treatment Plan Need for Continued Stay: Severe depression anxiety, Severe functional impairment Progress Toward Problem(s) and Goals/Treatment Plan: Major depressive disorder recurrent severe without psychotic features CBT Psychoeducation Supportive therapy, group therapy, individual therapy Trazodone 100 mg by mouth daily at bedtime Hydroxyzine 25 mg by mouth every 6 hours when necessary Gabapentin 100 mg po TID Remeron 15 mg PO QHS Opioid use disorder severe CBT Psychoeducation Supportive therapy, individual therapy Use [place] for abstinence Opioid withdrawal CBT Psychoeducation Supportive therapy, individual therapy Clonidine when necessary Methadone taper Cocaine use disorder severe CBT Psychoeducation Supportive therapy, individual therapy Use MO for abstinence - Smoking Cessation Smoking Cessation Initiated: No
[2018-01-12] MEDS ORDERED: Influenza Vaccine 60 MCG/0.5 ML SYR (3 yr & up) IM ONE (10:00)
[2018-01-12] MEDS ORDERED: Pneumococcal 23-Valent Vaccine IM ONE (10:00)
--- NOTE | 2018-01-12 22:46 | PCM.PYCHPN ---
Psychiatric Progress Note - Psychiatric Progress Note Patient seen today, length of contact: 15 min Patient Chief Complaint: I was feeling depressed.' Problems Identified/Issues Discussed: Patient seen and evaluated, chart reviewed and discussed with the nurse. Pt reports depressed mood, but reports improvement in his feelings of hopelessness and helplessness. He remained isolated and withdrawn. Patient reports of withdrawal symptoms including abdominal cramps, anxiety, headaches and sweating. He denies any auditory hallucinations, visual hallucinations, or any paranoia. Patient is compliant with medications and denies any side effects. Symptoms are improving but pt needs more time to stabilize. Support and psychoeducation given. Medication Change: Yes Medical Record Reviewed: Yes Mental Status Examination - Cognitive Function Orientation: Person, Place, Situation, Time Memory: Intact Attention: WNL Concentration: Poor Association: WNL Fund of Knowledge: Poor - Mood Mood: Depressed, Anxious - Affect Affect: Constricted, Depressed - Speech Speech: Soft - Formal Thought Process Formal Thought Process: No Impairment - Suicidal Ideation Suicidal Ideation: No - Homicidal Ideation Homicidal Ideation: No Goal/Treatment Plan - Goal/Treatment Plan Need for Continued Stay: Severe depression anxiety, Severe functional impairment Progress Toward Problem(s) and Goals/Treatment Plan: Major depressive disorder recurrent severe without psychotic features CBT Psychoeducation Supportive therapy, group therapy, individual therapy Trazodone 100 mg by mouth daily at bedtime Hydroxyzine 25 mg by mouth every 6 hours when necessary Gabapentin 300 mg po TID Remeron 30 mg PO QHS Opioid use disorder severe CBT Psychoeducation Supportive therapy, individual therapy Use AL for abstinence Opioid withdrawal CBT Psychoeducation Supportive therapy, individual therapy Clonidine when necessary Methadone taper Cocaine use disorder severe CBT Psychoeducation Supportive therapy, individual therapy Use AL for abstinence
--- NOTE | 2018-01-13 10:19 | PCM.PYCHPN ---
Psychiatric Progress Note - Psychiatric Progress Note Patient seen today, length of contact: 15 min Patient Chief Complaint: I was feeling depressed.' Problems Identified/Issues Discussed: Patient seen and evaluated, chart reviewed and discussed with the nurse. Pt reports depressed mood, and reports feelings of hopelessness and helplessness. He remained isolated and withdrawn, and confined to his room. Patient reports of withdrawal symptoms including abdominal cramps, anxiety, headaches and sweating. He denies any auditory hallucinations, visual hallucinations, or any paranoia. Patient is compliant with medications and denies any side effects. Symptoms are improving but pt needs more time to stabilize. Support and psychoeducation given. Medication Change: Yes Medical Record Reviewed: Yes Mental Status Examination - Cognitive Function Orientation: Person, Place, Situation, Time Memory: Intact Attention: WNL Concentration: Poor Association: WNL Fund of Knowledge: Poor - Mood Mood: Depressed, Anxious - Affect Affect: Constricted, Depressed - Speech Speech: Soft - Formal Thought Process Formal Thought Process: No Impairment - Suicidal Ideation Suicidal Ideation: No - Homicidal Ideation Homicidal Ideation: No Goal/Treatment Plan - Goal/Treatment Plan Need for Continued Stay: Severe depression anxiety, Severe functional impairment Progress Toward Problem(s) and Goals/Treatment Plan: Major depressive disorder recurrent severe without psychotic features CBT Psychoeducation Supportive therapy, group therapy, individual therapy Trazodone 100 mg by mouth daily at bedtime Hydroxyzine 25 mg by mouth every 6 hours when necessary Gabapentin 100 mg po TID Remeron 15 mg PO QHS Opioid use disorder severe CBT Psychoeducation Supportive therapy, individual therapy Use [place] for abstinence Opioid withdrawal CBT Psychoeducation Supportive therapy, individual therapy Clonidine when necessary Methadone taper Cocaine use disorder severe CBT Psychoeducation Supportive therapy, individual therapy Use GA for abstinence
[2018-01-15 07:30] VITALS: O2SAT 96
--- NOTE | 2018-01-16 06:13 | PCM.PYCHPN ---
Psychiatric Progress Note - Psychiatric Progress Note Patient seen today, length of contact: 15 min Patient Chief Complaint: I WANT TO FINISH DETOX AND GO TO [facility] I AM MUCH LESS DEPRESS Problems Identified/Issues Discussed: PT SEEN ANDEXAMINED DISCUSSED WITH STAFF DISCUSSED WITH PT WAYS TO STAY SOBER Medical Problems: NOTHING ACUTE Diagnostic Results: REVIEWED DSM 5 Symptoms Update: ANXIETY Medication Change: Yes (METHADONE TAPER) Medical Record Reviewed: Yes Mental Status Examination - Cognitive Function Orientation: Person, Place, Situation, Time Memory: Intact Attention: WNL Concentration: WNL Association: WNL Fund of Knowledge: WNL - Mood Mood: Depressed, Anxious - Affect Affect: Constricted, Depressed - Speech Speech: Appropriate, Soft - Formal Thought Process Formal Thought Process: No Impairment - Suicidal Ideation Suicidal Ideation: No - Homicidal Ideation Homicidal Ideation: No Goal/Treatment Plan - Goal/Treatment Plan Need for Continued Stay: Remain at risks for inpatient hospitalization, Severe depression anxiety, Discharge may exacerbated symptoms, Severe functional impairment Progress Toward Problem(s) and Goals/Treatment Plan: MDD NEURONTIN REMERON OPOID WITHDRAWAL METHADONE TAPER OPOIOID USE DISORDER [place] CBT GROUPS SUPPORTIVE PSYCHOTHERAPY - Smoking Cessation Smoking Cessation Initiated: No
--- NOTE | 2018-01-16 06:19 | PCM.PYCHPN ---
Psychiatric Progress Note - Psychiatric Progress Note Patient seen today, length of contact: 15 min Patient Chief Complaint: I WANT TO STAY UNTIL TUESDAY AND GO FROM HERE [facility] Problems Identified/Issues Discussed: PT SEEN ANDEXAMINED DISCUSSED WITH STAFF DISCUSSED WITH PT SIGNS AND SYMPTOMS OF DEPRESSION Medical Problems: NOTHING ACUTE Diagnostic Results: REVIEWED Medication Change: Yes (METHADONE TAPER) Mental Status Examination - Cognitive Function Orientation: Person, Place, Situation, Time Memory: Intact Attention: WNL Concentration: WNL Association: WNL Fund of Knowledge: WNL - Mood Mood: Depressed, Anxious - Affect Affect: Constricted, Depressed - Speech Speech: Appropriate, Soft - Formal Thought Process Formal Thought Process: No Impairment - Suicidal Ideation Suicidal Ideation: No - Homicidal Ideation Homicidal Ideation: No Goal/Treatment Plan - Goal/Treatment Plan Need for Continued Stay: Remain at risks for inpatient hospitalization, Severe depression anxiety, Discharge may exacerbated symptoms, Severe functional impairment Progress Toward Problem(s) and Goals/Treatment Plan: MDD NEURONTIN REMERON DE CBT SUPPORTIVE PSYCHOTHERAPY OPOID WITHDRAWAL METHADONE TAPER OPOIOID USE DISORDER DE CBT GROUPS SUPPORTIVE PSYCHOTHERAPY
[2018-01-16 06:53] VITALS: RESP 18
--- NOTE | 2018-01-16 12:01 | PCM.PYCHPN ---
Psychiatric Progress Note - Psychiatric Progress Note Patient seen today, length of contact: 15 min Patient Chief Complaint: I was feeling depressed.' Problems Identified/Issues Discussed: Patient seen and evaluated, chart reviewed and discussed with the nurse. Pt reports depressed mood, but reports improvement in his feelings of hopelessness and helplessness. He remained isolated and withdrawn. Patient reports of withdrawal symptoms including abdominal cramps, anxiety, headaches and sweating. He denies any auditory hallucinations, visual hallucinations, or any paranoia. Patient is compliant with medications and denies any side effects. Symptoms are improving but pt needs more time to stabilize. Support and psychoeducation given. Medication Change: Yes (METHADONE TAPER) Medical Record Reviewed: Yes Mental Status Examination - Cognitive Function Orientation: Person, Place, Situation, Time Memory: Intact Attention: WNL Concentration: WNL Association: WNL Fund of Knowledge: WNL - Mood Mood: Depressed, Anxious - Affect Affect: Constricted, Depressed - Speech Speech: Appropriate, Soft - Formal Thought Process Formal Thought Process: No Impairment - Suicidal Ideation Suicidal Ideation: No - Homicidal Ideation Homicidal Ideation: No Goal/Treatment Plan - Goal/Treatment Plan Need for Continued Stay: Remain at risks for inpatient hospitalization, Severe depression anxiety, Discharge may exacerbated symptoms, Severe functional impairment Progress Toward Problem(s) and Goals/Treatment Plan: Major depressive disorder recurrent severe without psychotic features CBT Psychoeducation Supportive therapy, group therapy, individual therapy Trazodone 100 mg by mouth daily at bedtime Hydroxyzine 25 mg by mouth every 6 hours when necessary Gabapentin 300 mg po TID Remeron 30 mg PO QHS Opioid use disorder severe CBT Psychoeducation Supportive therapy, individual therapy Use SD for abstinence Opioid withdrawal CBT Psychoeducation Supportive therapy, individual therapy Clonidine when necessary Methadone taper Cocaine use disorder severe CBT Psychoeducation Supportive therapy, individual therapy Use SD for abstinence
[2018-01-17 07:01] VITALS: BP 97/53; PULSE 55; TEMP 97.6
--- NOTE | 2018-01-17 10:06 | PCM.PYCHDC ---
Mental Status Examination - Mental Status Examination Orientation: Person, Place, Situation, Time Memory: Intact Mood: Neutral Affect: Constricted Speech: Soft Attention: WNL Concentration: WNL Association: WNL Fund of Knowledge: WNL Formal Thought Process: No Impairment Description of patient's judgement and insight: good, fair Psychotic Thoughts and Behaviors: denies any AVH Suicidal Ideation: No Current Homicidal Ideation?: No Discharge Summary - Discharge Note Reason for Hospitalization: Pt is a 37 year old male who is and has one child that is 5 years old. 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 Pt also does not have a home and has been staying with friends for 1 year. Pt came to [facility] complaining of depression and suicidal ideation with a plan to overdose. Patient reports that he has been hospitalized for the psychiatric condition more than 3 times in the past and the last time was 1 month ago at [facility]. During these hospital stays he has been on a methadone taper but has not used methadone as maintenance therapy. Patient reports that he has been feeling suicidal and depressed for the last couple days because of his active drug addiction and on and off homelessness along with having trouble to function with society. Pt uses 20 bags of heroin a day by injection and has been using for 2 years. His last use was the night before admission. Pt also uses 20 bags of cocaine by injection for the past 2 years. He smokes 1 pack of cigarettes a day but denies excessive use of alcohol. He denies having been to a detoxification or rehabilitation center before. Pt was diagnosed with major depressive d/o 4 years ago. He states that his appetite and sleep are intact but he has overall low energy. He is feeling guilty about his daughter and having trouble concentrating in day to day activities. Patient reports depressed mood, feelings of hopelessness and helplessness, poor sleep and poor appetite. He denies any homicidal ideation. He denies any manic symptoms. He denies any auditory or visual hallucinations or any psychotic symptoms. Patient reports withdrawal s ymptoms including abdominal cramps, anxiety, headaches and sweating. Consultations:: List each consultation separately and include: 1. Reason for request. 2. Findings. 3. Follow-up Summary of Hospital Course include:: 1. Description of specific treatment plan utilized for patients during their course of treatmen. 2. Summarize the time-course for resolution of acute symptoms and/or regressed behaviors. 3. Describe issues identified and worked on during hospitalization. 4. Describe medication utilized. 5. Describe medical problems identified and treated. 6. Reassessment of suicide risk Summary of Hospital Course: Pt is a 37 year old male who is and has one child that is 5 years old. 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 Pt also does not have a home and has been staying with friends for 1 year. Pt came to [facility] complaining of depression and suicidal ideation with a plan to overdose. Patient reports that he has been hospitalized for the psychiatric condition more than 3 times in the past and the last time was 1 month ago at [facility]. During these hospital stays he has been on a methadone taper but has not used methadone as maintenance therapy. Patient reports that he has been feeling suicidal and depressed for the last couple days because of his active drug addiction and on and off homelessness along with having trouble to function with society. Pt uses 20 bags of heroin a day by injection and has been using for 2 years. His last use was the night before admission. Pt also uses 20 bags of cocaine by injection for the past 2 years. He smokes 1 pack of cigarettes a day but denies excessive use of alcohol. He denies having been to a detoxification or rehab ilitation center before. Pt was diagnosed with major depressive d/o 4 years ago. He states that his appetite and sleep are intact but he has overall low energy. He is feeling guilty about his daughter and having trouble concentrating in day to day activities. Patient reports depressed mood, feelings of hopelessness and helplessness, poor sleep and poor appetite. He denies any homicidal ideation. He denies any manic symptoms. He denies any auditory or visual hallucinations or any psychotic symptoms. Patient reports withdrawal symptoms including abdominal cramps, anxiety, headaches and sweating. Past medical history: Hepatitis C Allergies: Banana, nuts Surgical history: Denies Legal history: Denies Psychiatric history: Major depressive d/o Family psychiatric history: Denies - Diagnosis (1) Major depression Current Visit: Yes Status: Acute (2) Drug abuse Current Visit: No Status: Acute - Final Diagnosis (DSM 5) Condition upon Discharge: STABLE DSM 5: Major depressive disorder recurrent severe without psychotic features Opioid use disorder severe Opioid withdrawal Cocaine use disorder severe Disposition: HOME/ ROUTINE Follow-up Treatment Plan: Major depressive disorder recurrent severe without psychotic features CBT Psychoeducation Supportive therapy, group therapy, individual therapy Trazodone 100 mg by mouth daily at bedtime Hydroxyzine 25 mg by mouth every 6 hours when necessary Gabapentin 300 mg po TID Remeron 30 mg PO QHS Opioid use disorder severe CBT Psychoeducation Supportive therapy, individual therapy Use SD for abstinence Opioid withdrawal CBT Psychoeducation Supportive therapy, individual therapy Clonidine when necessary Methadone taper Cocaine use disorder severe CBT Psychoeducation Supportive therapy, individual therapy Use SD for abstinence Prescriptions/Medication Reconciliation: Gabapentin [Neurontin] 300 mg PO TID #90 cap Mirtazapine [Remeron] 30 mg PO HS #30 tab - Smoking Cessation Smoking Cessation Medication prescribed: No - Antipsychotic Medications Pt discharged on 2 or more routine antipsychotic medications: No
== END 2018-01-17 10:40 | disposition home or self-care (01) | DRG 885 ==
LOC: C.ER 12:20 → C.5E 16:00
PROVIDERS: ADMIT Psychiatry & Neurology Psychiatry; ATTEND Psychiatry & Neurology Psychiatry
PROC: GZHZZZZ Group Psychotherapy (ICD-10-PCS; principal; 2018-01-09)
PROC: GZ58ZZZ Individual Psychotherapy, Cognitive-Behavioral (ICD-10-PCS; 2018-01-09)
PROC: GZ56ZZZ Individual Psychotherapy, Supportive (ICD-10-PCS; 2018-01-09)
PROC: HZ52ZZZ Individual Psychotherapy for Substance Abuse Treatment, Cognitive-Behavioral (ICD-10-PCS; 2018-01-09)
PROC: HZ59ZZZ Individual Psychotherapy for Substance Abuse Treatment, Supportive (ICD-10-PCS; 2018-01-09)
PROC: HZ56ZZZ Individual Psychotherapy for Substance Abuse Treatment, Psychoeducation (ICD-10-PCS; 2018-01-09)
PROC: HZ2ZZZZ Detoxification Services for Substance Abuse Treatment (ICD-10-PCS; 2018-01-09)
DX: F33.2 Major depressive disorder, recurrent severe without psychotic features (principal); F11.23 Opioid dependence with withdrawal; F14.20 Cocaine dependence, uncomplicated; R45.851 Suicidal ideations; E78.00 Pure hypercholesterolemia, unspecified; N18.9 Chronic kidney disease, unspecified; R56.9 Unspecified convulsions; F17.210 Nicotine dependence, cigarettes, uncomplicated; F41.9 Anxiety disorder, unspecified; Z59.0 Homelessness